=== PATIENT | male | born 1995 | race Caucasian/White ===

== ENCOUNTER 2021-02-21 18:25 | Inpatient (IN) | payer OTHER ==
[~2021-02-21] VITALS: Ht 170.2 cm; Wt 77.1 kg
[2021-02-21 19:02] LABS: BASOPHILS ABSOLUTE AUTO 0.11 K/mm3 (0.00-0.23); BASOPHILS PERCENT AUTO 0 % (0-2); EOSINOPHILS ABSOLUTE AUTO 0.03 K/mm3 (0.00-0.68); EOSINOPHILS PERCENT AUTO 0 % (0-6); Hematocrit 52.4 % (37.0-53.0); Hemoglobin 17.6 g/dL (13.5-17.5); IMMATURE GRAN ABSOLUTE AUTO 0.18 K/mm3 (0.00-0.10); IMMATURE GRAN PERCENT AUTO 1 % (0-1); LYMPHOCYTES ABSOLUTE AUTO 1.25 K/mm3 (0.84-5.20); LYMPHOCYTES PERCENT AUTO 5 % (21-46); MONOCYTES ABSOLUTE AUTO 1.77 K/mm3 (0.16-1.47); MONOCYTES PERCENT AUTO 7 % (4-13); Mean Corpuscular HGB 29.6 pg (26.0-34.0); Mean Corpuscular HGB Conc 33.6 g/dL (31.5-36.5); Mean Corpuscular Volume 88 fL (80-100); Mean Platelet Volume 9.9 fL (9.1-12.4); NEUTROPHILS ABSOLUTE AUTO 22.72 K/mm3 (1.96-9.15); NEUTROPHILS PERCENT AUTO 87 % (41-73); Platelet Count 312 K/mm3 (150-400); RDW Coefficient Variation 12.4 % (11.7-14.2); RDW Standard Deviation 40.5 fL (35.1-46.3); Red Blood Cell Count 5.95 M/mm3 (4.30-5.90); White Blood Cell Count 26.06 K/mm3 (4.00-11.30)
[2021-02-21 19:32] LABS: Alanine Aminotransfer (ALT/SGP 84 U/L (12-78); Albumin, Blood 4.1 g/dL (3.4-5.0); Albumin/Globulin Ratio 1.2 (0.8-1.8); Alk Phos 131 U/L (50-136); Anion Gap 11 mmol/L (6-16); Aspartate Aminotrans (AST/SGOT 51 U/L (12-37); Bilirubin, Total 0.7 mg/dL (0.1-1.0); Blood Urea Nitrogen 13 mg/dL (8-24); Bun/Creatinine Ratio 16.4 (12.0-20.0); CO2, Blood 21 mmol/L (21-32); Calcium, Blood 9.3 mg/dL (8.5-10.1); Chloride, Blood 101 mmol/L (98-108); Globulin, Blood 3.4 g/dL (2.2-4.0); Glomerular Filtration Rate >60 (60-); Glucose, Blood 128 mg/dL (70-99); Potassium, Blood 4.1 mmol/L (3.5-5.5); Sodium, Blood 133 mmol/L (136-145); Total Protein, Blood 7.5 g/dL (6.4-8.2)
[2021-02-21 23:41] LABS: CHOL/HDL RATIO 3.4; Cholesterol 181 mg/dL (50-200); HDL Cholesterol 53 mg/dL (>39); Low Density Lipoprotein Chol 107 mg/dL (0-110); Triglycerides 106 mg/dL (30-140); Very Low Density Lipoprot Chol 21 mg/dL (6-28)
--- NOTE | 2021-02-22 | NUR ---
ADMISSION NOTE: RECEIVED PT FROM ER AAOX4. C/O OF ABD PAIN RATED 9. LUNGS CLEAR. RESP UNLABORED. ABD ROUND AND TENDER TO TOUCH. ORIENTED PT TO SURROUNDINGS. CALL LIGHT WITHIN REACH. PT REPORTS NO RELIEF FROM DILAUDID PO. HOWEVER, THERE IS NO ORDER FOR IV. DR. GOSS CALLED AND MADE AWARE. STATES HE WILL FOLLOW UP WITH RESIDENT AND CALL BACK. AWAITING ORDER.
--- NOTE | 2021-02-22 01:08 | NUR ---
MEDICATED FOR PAIN WITH DILAUDID IV. REPORTS DECREASED PAIN LEVEL RATED 6. OBSERVED RESTING WITH EYES CLOSED. ENCOURAGE REPOSITIONING. WILL CONTINUE TO MONITOR.
--- NOTE | 2021-02-22 03:27 | NUR ---
PT REPORTS FEELING BETTER WITH DILAUDID IV. NO ACUTE CHANGE IN STATUS. IVF INFUSING. DENIES NAUSEA. NO EPISODE OF VOMITING. CALL LIGHT WITHIN REACH. WILL CONTINUE TO MONITOR.
[2021-02-22 05:01] LABS: BASOPHILS ABSOLUTE AUTO 0.03 K/mm3 (0.00-0.23); BASOPHILS PERCENT AUTO 0 % (0-2); EOSINOPHILS ABSOLUTE AUTO 0.01 K/mm3 (0.00-0.68); EOSINOPHILS PERCENT AUTO 0 % (0-6); Hematocrit 51.9 % (37.0-53.0); IMMATURE GRAN PERCENT AUTO 1 % (0-1); LYMPHOCYTES ABSOLUTE AUTO 0.57 K/mm3 (0.84-5.20); LYMPHOCYTES PERCENT AUTO 3 % (21-46); MONOCYTES ABSOLUTE AUTO 1.15 K/mm3 (0.16-1.47); MONOCYTES PERCENT AUTO 7 % (4-13); Mean Corpuscular HGB 29.5 pg (26.0-34.0); Mean Corpuscular HGB Conc 32.8 g/dL (31.5-36.5); Mean Corpuscular Volume 90 fL (80-100); Mean Platelet Volume 10.1 fL (9.1-12.4); NEUTROPHILS ABSOLUTE AUTO 15.93 K/mm3 (1.96-9.15); NEUTROPHILS PERCENT AUTO 89 % (41-73); Platelet Count 263 K/mm3 (150-400); RDW Coefficient Variation 12.7 % (11.7-14.2); RDW Standard Deviation 41.9 fL (35.1-46.3); Red Blood Cell Count 5.76 M/mm3 (4.30-5.90); White Blood Cell Count 17.79 K/mm3 (4.00-11.30)
--- NOTE | 2021-02-22 05:51 | NUR ---
PT REPORTS PAIN OF 6 BUT FEELS MUCH BETTER. RESTING IN BED WITH EYES CLOSED. ENCOURAGE REPOSITIONING. NO CHANGE IN STATUS NOTED.
[2021-02-22 05:55] LABS: Alanine Aminotransfer (ALT/SGP 57 U/L (12-78); Albumin, Blood 3.3 g/dL (3.4-5.0); Albumin/Globulin Ratio 1.3 (0.8-1.8); Alk Phos 106 U/L (50-136); Anion Gap 12 mmol/L (6-16); Aspartate Aminotrans (AST/SGOT 37 U/L (12-37); Bilirubin, Total 0.7 mg/dL (0.1-1.0); Blood Urea Nitrogen 13 mg/dL (8-24); Bun/Creatinine Ratio 18.6 (12.0-20.0); CO2, Blood 19 mmol/L (21-32); Calcium, Blood 8.1 mg/dL (8.5-10.1); Chloride, Blood 109 mmol/L (98-108); Globulin, Blood 2.6 g/dL (2.2-4.0); Glomerular Filtration Rate >60 (60-); Glucose, Blood 137 mg/dL (70-99); Potassium, Blood 3.9 mmol/L (3.5-5.5); Sodium, Blood 140 mmol/L (136-145); Total Protein, Blood 5.9 g/dL (6.4-8.2)
--- NOTE | 2021-02-22 18:37 | NUR ---
PT C/O ABDOMINAL PAIN,MEDICATED PER EMAR.PT C/O N/V,MEDICATED WITH ZOFRAN,PT DENIES SOB.PT INDEP.IN THE ROOM.PT ABD IS TENDER.PT IN BED,CALL LIGHT IN REACH WILL CONTINUE TO MONITOR.
--- NOTE | 2021-02-23 05:25 | NUR ---
AOX4. C/O OF ABD PAIN, INTERMITTENT BACK PAIN AND NAUSEA. PT IS FEARFUL OF TAKING DEEP BREATHS DUE TO PAIN. MEDICATED WITH PRN MEDS.NO OTHER ISSUES NOTED. CALM AND COOPERATIVE WITH CARE. AOX4.BED IN LOW POSITION, CALL LIGHT IN REACH
[2021-02-23 05:55] LABS: Hematocrit 50.8 % (37.0-53.0); Hemoglobin 16.8 g/dL (13.5-17.5); Mean Corpuscular HGB 29.7 pg (26.0-34.0); Mean Corpuscular HGB Conc 33.1 g/dL (31.5-36.5); Mean Corpuscular Volume 90 fL (80-100); Mean Platelet Volume 10.7 fL (9.1-12.4); Platelet Count 195 K/mm3 (150-400); RDW Coefficient Variation 12.9 % (11.7-14.2); RDW Standard Deviation 42.4 fL (35.1-46.3); Red Blood Cell Count 5.65 M/mm3 (4.30-5.90); White Blood Cell Count 22.79 K/mm3 (4.00-11.30)
[2021-02-23 06:15] LABS: Albumin, Blood 2.8 g/dL (3.4-5.0); Anion Gap 9 mmol/L (6-16); Blood Urea Nitrogen 17 mg/dL (8-24); Bun/Creatinine Ratio 21.5 (12.0-20.0); CO2, Blood 22 mmol/L (21-32); Calcium, Blood 8.1 mg/dL (8.5-10.1); Chloride, Blood 103 mmol/L (98-108); Creatinine, Blood 0.79 mg/dL (0.60-1.20); Glomerular Filtration Rate >60 (60-); Glucose, Blood 146 mg/dL (70-99); Phosphorus, Blood 1.9 mg/dL (2.5-4.9); Potassium, Blood 4.4 mmol/L (3.5-5.5); Sodium, Blood 134 mmol/L (136-145)
[2021-02-23 06:34] LABS: BAND PERCENT MAN 27 % (0-8); BASOPHILS PERCENT MAN 0 % (0-2); EOSINOPHILS PERCENT MAN 0 % (0-6); LYMPHOCYTES ABSOLUTE MAN 0.45 K/mm3 (0.84-5.20); LYMPHOCYTES PERCENT MAN 2 % (21-46); MONOCYTES ABSOLUTE MAN 0.68 K/mm3 (0.16-1.47); MONOCYTES PERCENT MAN 3 % (4-13); MYELOCYTE ABSOLUTE MAN 0.22 K/mm3 (0.00-0.00); MYELOCYTE PERCENT MAN 1 % (0-0); NEUTROPHILS ABSOLUTE MAN 21.42 K/mm3 (1.96-9.15); SEG NEUTROPHILS PERCENT MAN 67 % (41-73); TOTAL CELLS COUNTED 100
--- NOTE | 2021-02-23 19:04 | NUR ---
PT C/O PAIN MEDICATED PER EMAR.PT ALERT AND ORIENTED,DENIES SOB.PT HAD X-RAY DONE THIS AFTERNOON.PT IN BED,CALL LIGTH IN REACH WILL CONTINUE TO MONITOR.
--- NOTE | 2021-02-24 05:00 | NUR ---
AOX4. CALM AND COOPERATIVE WITH CARE.FREQUENT C/O OF ABD AND BACK PAIN NEW ORDER OBTAINED NORCO Q4 PRN. SINUS TACH ON TELE WITH HR UP TO 140'S AT TIMES. PT PROVIDED IS TO ASSIST WITH BREATHING. HE WAS AFRAID TO TAKE DEEP BREATHS DUE TO PAIN.NO C/O OF N/V THIS SHIFT. IV FLUIDS INFUSING. NO OTHER ISSUES NOTED. CALL LIGHT IN REACH. BED IN LOW POSITION
[2021-02-24 05:20] LABS: Hematocrit 41.2 % (37.0-53.0); Hemoglobin 13.7 g/dL (13.5-17.5); Mean Corpuscular HGB 29.6 pg (26.0-34.0); Mean Corpuscular HGB Conc 33.3 g/dL (31.5-36.5); Mean Corpuscular Volume 89 fL (80-100); Mean Platelet Volume 10.8 fL (9.1-12.4); Platelet Count 142 K/mm3 (150-400); RDW Coefficient Variation 12.5 % (11.7-14.2); RDW Standard Deviation 41.2 fL (35.1-46.3); Red Blood Cell Count 4.63 M/mm3 (4.30-5.90); White Blood Cell Count 16.16 K/mm3 (4.00-11.30)
[2021-02-24 05:59] LABS: Albumin, Blood 2.3 g/dL (3.4-5.0); Anion Gap 9 mmol/L (6-16); Blood Urea Nitrogen 12 mg/dL (8-24); Bun/Creatinine Ratio 18.5 (12.0-20.0); CO2, Blood 24 mmol/L (21-32); Calcium, Blood 7.8 mg/dL (8.5-10.1); Chloride, Blood 101 mmol/L (98-108); Creatinine, Blood 0.65 mg/dL (0.60-1.20); Glomerular Filtration Rate >60 (60-); Glucose, Blood 98 mg/dL (70-99); Phosphorus, Blood 1.2 mg/dL (2.5-4.9); Potassium, Blood 4.3 mmol/L (3.5-5.5); Sodium, Blood 134 mmol/L (136-145)
[2021-02-24 06:51] LABS: BAND PERCENT MAN 17 % (0-8); BASOPHILS PERCENT MAN 0 % (0-2); EOSINOPHILS PERCENT MAN 0 % (0-6); LYMPHOCYTES ABSOLUTE MAN 1.93 K/mm3 (0.84-5.20); LYMPHOCYTES PERCENT MAN 12 % (21-46); MONOCYTES ABSOLUTE MAN 1.93 K/mm3 (0.16-1.47); MONOCYTES PERCENT MAN 12 % (4-13); NEUTROPHILS ABSOLUTE MAN 12.28 K/mm3 (1.96-9.15); SEG NEUTROPHILS PERCENT MAN 59 % (41-73); TOTAL CELLS COUNTED 100
--- NOTE | 2021-02-24 18:27 | NUR ---
PT ALERT ORIENTED X 4.PT C/O ABD PAIN MEDICATED PER EMAR,DENIES N/V,SOB.PT HAD CT ABD.PT INDEP.IN THE ROOM,PT STILL ON CLEAR LIQUID.PT IN BED,CALL LIGHT IN REACH WILL CONTINUE TO MONITOR.
--- NOTE | 2021-02-25 04:29 | NUR ---
SUMMARY PT CONTINUES TO HAVE DISCOMFORT. PT RESPONDS WELL TO PAIN MANAGEMENT. PT REPORTS ABD FEELS LESS BLOATED. PT REPORTS GROIN IS STILL SWOLLEN. PT DID SLEEP SOME DURING THE SHIFT. PT CURRENTLY SLEEPING AND IN NO DISTRESS. CALL LIGHT IN REACH.
[2021-02-25 05:10] LABS: Hematocrit 37.4 % (37.0-53.0); Hemoglobin 12.5 g/dL (13.5-17.5); Mean Corpuscular HGB 29.9 pg (26.0-34.0); Mean Corpuscular HGB Conc 33.4 g/dL (31.5-36.5); Mean Corpuscular Volume 90 fL (80-100); Mean Platelet Volume 10.4 fL (9.1-12.4); Platelet Count 184 K/mm3 (150-400); RDW Coefficient Variation 12.7 % (11.7-14.2); RDW Standard Deviation 41.7 fL (35.1-46.3); Red Blood Cell Count 4.18 M/mm3 (4.30-5.90)
[2021-02-25 06:00] LABS: Alanine Aminotransfer (ALT/SGP 38 U/L (12-78); Albumin, Blood 2.3 g/dL (3.4-5.0); Albumin/Globulin Ratio 0.9 (0.8-1.8); Alk Phos 92 U/L (50-136); Anion Gap 8 mmol/L (6-16); Aspartate Aminotrans (AST/SGOT 40 U/L (12-37); Bilirubin, Direct 0.5 mg/dL (0.0-0.3); Bilirubin, Indirect 0.5 mg/dL (0.1-0.7); Blood Urea Nitrogen 12 mg/dL (8-24); Bun/Creatinine Ratio 18.7 (12.0-20.0); CO2, Blood 28 mmol/L (21-32); Calcium, Blood 8.1 mg/dL (8.5-10.1); Chloride, Blood 100 mmol/L (98-108); Creatinine, Blood 0.64 mg/dL (0.60-1.20); Globulin, Blood 2.7 g/dL (2.2-4.0); Glomerular Filtration Rate >60 (60-); Glucose, Blood 84 mg/dL (70-99); Phosphorus, Blood 1.7 mg/dL (2.5-4.9); Potassium, Blood 3.4 mmol/L (3.5-5.5); Sodium, Blood 136 mmol/L (136-145)
[2021-02-26 04:34] LABS: Hematocrit 38.4 % (37.0-53.0); Hemoglobin 12.9 g/dL (13.5-17.5); Mean Corpuscular HGB 29.5 pg (26.0-34.0); Mean Corpuscular HGB Conc 33.6 g/dL (31.5-36.5); Mean Corpuscular Volume 88 fL (80-100); Mean Platelet Volume 9.7 fL (9.1-12.4); Platelet Count 240 K/mm3 (150-400); RDW Coefficient Variation 12.8 % (11.7-14.2); RDW Standard Deviation 41.4 fL (35.1-46.3); Red Blood Cell Count 4.38 M/mm3 (4.30-5.90); White Blood Cell Count 14.57 K/mm3 (4.00-11.30)
[2021-02-26 04:50] LABS: Albumin, Blood 2.4 g/dL (3.4-5.0); Anion Gap 7 mmol/L (6-16); Blood Urea Nitrogen 10 mg/dL (8-24); CO2, Blood 29 mmol/L (21-32); Calcium, Blood 8.2 mg/dL (8.5-10.1); Chloride, Blood 102 mmol/L (98-108); Creatinine, Blood 0.67 mg/dL (0.60-1.20); Glomerular Filtration Rate >60 (60-); Glucose, Blood 91 mg/dL (70-99); Phosphorus, Blood 2.7 mg/dL (2.5-4.9); Potassium, Blood 3.3 mmol/L (3.5-5.5); Sodium, Blood 138 mmol/L (136-145)
--- NOTE | 2021-02-26 16:58 | NUR ---
SHIFT SUMMARY PT IS AAOX4, ABLE TO MAKE NEEDS KNOWN. PLEASANT AND COOPERATIVE TO CARE. MEDICATED FOR PAIN PER EMAR. NO C/O CP, SOB, OR N&V. PT TOLERATED DIET THIS SHIFT. PT CONTINUES ON IV ABX ORDERED, NO ASE NOTED. PT IS INDEPENDENT IN THE ROOM AND CALLS APPROPRIATELY FOR ASSISTANCE. BED AT LOWEST POSITION. CALL LIGHT WITHIN REACH.
--- NOTE | 2021-02-27 05:42 | NUR ---
PRIMING MIXTURE CARRIER SUMMARY NO ACUTE CHANGES WITH PATIENT. PATIENT SAT IN CHAIR ALL NIGHT DUE TO BACK PAIN AND WAS MEDICATED WITH HYDROMOPHONE AND OXYCONE WHICH ARE PRN MES PER EMAR. PATIENT TOLERANTED DRINKING WATER BUT STILL COMPAINED OF HIS ABDOMINAL DISCOMFORT
[2021-02-27 09:26] LABS: Hemoglobin 12.9 g/dL (13.5-17.5); Mean Corpuscular HGB 29.6 pg (26.0-34.0); Mean Corpuscular HGB Conc 33.1 g/dL (31.5-36.5); Mean Corpuscular Volume 89 fL (80-100); Mean Platelet Volume 9.9 fL (9.1-12.4); Platelet Count 354 K/mm3 (150-400); RDW Coefficient Variation 12.8 % (11.7-14.2); RDW Standard Deviation 42.4 fL (35.1-46.3); Red Blood Cell Count 4.36 M/mm3 (4.30-5.90); White Blood Cell Count 15.02 K/mm3 (4.00-11.30)
[2021-02-27 09:35] LABS: Alanine Aminotransfer (ALT/SGP 41 U/L (12-78); Albumin, Blood 2.5 g/dL (3.4-5.0); Albumin/Globulin Ratio 0.8 (0.8-1.8); Alk Phos 144 U/L (50-136); Anion Gap 8 mmol/L (6-16); Aspartate Aminotrans (AST/SGOT 38 U/L (12-37); Bilirubin, Total 0.9 mg/dL (0.1-1.0); Blood Urea Nitrogen 8 mg/dL (8-24); Bun/Creatinine Ratio 13.5 (12.0-20.0); CO2, Blood 25 mmol/L (21-32); Calcium, Blood 8.6 mg/dL (8.5-10.1); Chloride, Blood 105 mmol/L (98-108); Creatinine, Blood 0.59 mg/dL (0.60-1.20); Globulin, Blood 3.2 g/dL (2.2-4.0); Glomerular Filtration Rate >60 (60-); Glucose, Blood 128 mg/dL (70-99); Potassium, Blood 3.5 mmol/L (3.5-5.5); Sodium, Blood 138 mmol/L (136-145); Total Protein, Blood 5.7 g/dL (6.4-8.2)
--- NOTE | 2021-02-27 17:34 | NUR ---
SHIFT SUMMARY PT INDEPENDENT IN ROOM. HAS WALKED IN HALLWAY TWICE TODAY AND ENCOURAGED TO WALK AFTER EACH MEAL. HAS REPORTED CONTINUING TO FEEL VERY BLOATED TODAY DESPITE HAVING BMS. VOIDING LARGE ABOUNTS. IV LASIX GIVEN THIS AFTERNOON AND NOW PT REPORTS STARTING TO FEEL LESS BLOATED AND PAIN BETTER. S.O. AT BEDSIDE. TOLERATING CLEAR LIQUIDS BUT HAS BEEN SAYING HE FEELS SO FULL AND BLOATED THAT ITS HARD TO EAT VERY MUCH.
--- NOTE | 2021-02-28 05:00 | NUR ---
ENVIRONMENTAL FIELD TEAM MEMBER SUMMARY PT AAOX4 AND INDEPENDENT. PT TOLERATING FULL LIQUID DIET WELL. PT PAIN BETTER CONTROLLED TONIGHT, ONLY MEDICATED WITH NORCO X2. PT STATES LASIX HE RECIEVED ON DAY SHIFT REALLY HELPED WITH HIS BLOATING AND HAS BEEN MORE COMFORTABLE EVER SINCE. PT HOPEFULL TO GO HOME LATER TODAY.
[2021-02-28 05:37] LABS: Hematocrit 39.5 % (37.0-53.0); Hemoglobin 12.7 g/dL (13.5-17.5); Mean Corpuscular HGB 28.8 pg (26.0-34.0); Mean Corpuscular HGB Conc 32.2 g/dL (31.5-36.5); Mean Corpuscular Volume 90 fL (80-100); Mean Platelet Volume 9.8 fL (9.1-12.4); Platelet Count 431 K/mm3 (150-400); RDW Coefficient Variation 12.8 % (11.7-14.2); RDW Standard Deviation 42.4 fL (35.1-46.3); Red Blood Cell Count 4.41 M/mm3 (4.30-5.90); White Blood Cell Count 12.72 K/mm3 (4.00-11.30)
[2021-02-28 06:23] LABS: Albumin, Blood 2.6 g/dL (3.4-5.0); Anion Gap 10 mmol/L (6-16); Blood Urea Nitrogen 9 mg/dL (8-24); Bun/Creatinine Ratio 14.5 (12.0-20.0); CO2, Blood 25 mmol/L (21-32); Calcium, Blood 8.9 mg/dL (8.5-10.1); Chloride, Blood 103 mmol/L (98-108); Creatinine, Blood 0.62 mg/dL (0.60-1.20); Glomerular Filtration Rate >60 (60-); Glucose, Blood 96 mg/dL (70-99); Phosphorus, Blood 3.2 mg/dL (2.5-4.9); Potassium, Blood 4.1 mmol/L (3.5-5.5); Sodium, Blood 138 mmol/L (136-145)
--- NOTE | 2021-02-28 07:30 | NUR ---
ASSUMED CARE: PT RESTING QUIETLY IN CHAIR AT THIS TIME. NO ACUTE NEEDS OR CONCERNS.
--- NOTE | 2021-02-28 16:27 | NUR ---
Provided pancreatitis diet education. Discussed dietary ways to minimize symptoms/pain when diet advances. Recommended following low-fat diet initially. Pt was confident in ability to do this an verbalized understanding of foods with higher fat content. Encouraged several small meals throughout the day. Pt inquired if he should limit starch - recommended pt focus on getting enough protein, limiting fat, and not worrying too much about CHO intake. Discussed monitoring wt to check if pt is eating enough kcals when limiting fat, especially if intake may still be low d/t abdominal pain. Moderate compliance expected.
--- NOTE | 2021-02-28 18:38 | NUR ---
SHIFT SUMMARY: WORKING ON PAIN MANAGEMENT FOR PT T/O DAY WELL EDUCATING ON OTHER METHODS FOR PAIN MANAGEMENT THAT ARE NONPHARMACEUTICAL. PLAN IS FOR POTENTIAL DISCHARGE TOMORROW. ICE PACKS AND PAIN MEDS PROVIDED THIS EVENING. NO ACUTE NEEDS OR CONCERNS AT THIS TIME.
--- NOTE | 2021-03-01 05:01 | NUR ---
BED MACHINE OPERATOR SUMMARY ADMITTED FOR PANCREATITIS. PT IS FULL CODE. PLAN FOR D/C AFTER PAIN IS CONTROLLED AND PT CAN TOLERATE PO INTAKE. PT REPORTS IMPROVEMENT IN PAIN DUE TO DECREASED AMBULATION. PT MEDICATED X3 FOR PAIN THIS SHIFT. NO OTHER CONCERNS THIS SHIFT.
[2021-03-01 05:33] LABS: BASOPHILS PERCENT AUTO 1 % (0-2); EOSINOPHILS ABSOLUTE AUTO 0.35 K/mm3 (0.00-0.68); EOSINOPHILS PERCENT AUTO 2 % (0-6); Hematocrit 40.8 % (37.0-53.0); Hemoglobin 12.8 g/dL (13.5-17.5); IMMATURE GRAN ABSOLUTE AUTO 0.46 K/mm3 (0.00-0.10); IMMATURE GRAN PERCENT AUTO 3 % (0-1); LYMPHOCYTES ABSOLUTE AUTO 1.96 K/mm3 (0.84-5.20); LYMPHOCYTES PERCENT AUTO 13 % (21-46); MONOCYTES PERCENT AUTO 14 % (4-13); Mean Corpuscular HGB 28.6 pg (26.0-34.0); Mean Corpuscular HGB Conc 31.4 g/dL (31.5-36.5); Mean Corpuscular Volume 91 fL (80-100); Mean Platelet Volume 9.6 fL (9.1-12.4); NEUTROPHILS ABSOLUTE AUTO 10.32 K/mm3 (1.96-9.15); NEUTROPHILS PERCENT AUTO 67 % (41-73); Platelet Count 521 K/mm3 (150-400); RDW Standard Deviation 43.2 fL (35.1-46.3); Red Blood Cell Count 4.47 M/mm3 (4.30-5.90); White Blood Cell Count 15.39 K/mm3 (4.00-11.30)
[2021-03-01 06:20] LABS: Alanine Aminotransfer (ALT/SGP 58 U/L (12-78); Albumin, Blood 2.5 g/dL (3.4-5.0); Albumin/Globulin Ratio 0.7 (0.8-1.8); Alk Phos 179 U/L (50-136); Anion Gap 7 mmol/L (6-16); Aspartate Aminotrans (AST/SGOT 44 U/L (12-37); Bilirubin, Total 0.8 mg/dL (0.1-1.0); Blood Urea Nitrogen 8 mg/dL (8-24); Bun/Creatinine Ratio 11.6 (12.0-20.0); CO2, Blood 28 mmol/L (21-32); Chloride, Blood 103 mmol/L (98-108); Creatinine, Blood 0.69 mg/dL (0.60-1.20); Globulin, Blood 3.4 g/dL (2.2-4.0); Glomerular Filtration Rate >60 (60-); Glucose, Blood 90 mg/dL (70-99); Magnesium, Blood 2.5 mg/dL (1.6-2.4); Phosphorus, Blood 4.1 mg/dL (2.5-4.9); Potassium, Blood 4.5 mmol/L (3.5-5.5); Sodium, Blood 138 mmol/L (136-145); Total Protein, Blood 5.9 g/dL (6.4-8.2)
--- NOTE | 2021-03-01 07:07 | NUR ---
ASSUMED CARE: PT RESTING QUIETLY AT THIS TIME. NO ACUTE NEEDS OR CONCERNS.
--- NOTE | 2021-03-01 09:36 | NUR ---
PT STATES VOMITED AFTER BREAKFAST. RN UNSURE OF COLOR OR VOLUME. PT DENIES BEING NAUSEATED FURTHER AND DECLINED NAUSEA MEDICATION
--- NOTE | 2021-03-01 11:46 | NUR ---
TOLD THIS RN AND PT THAT IF PT CAN TOLERATE LUNCH WITHOUT SIGNIFICANT PAIN OR NAUSEA THEN HE COULD BE DISCHARGED HOME THIS AFTERNOON. PT EATING CRACKERS AT THIS TIME TO SEE HOW WELL HE TOLERATES.
[2021-03-01] MEDS ORDERED: Norco 10-325 T1 EACH PO (15:22)
[2021-03-01] MEDS ORDERED: MELATONIN5 M1 PO (15:22)
[2021-03-01] MEDS ORDERED: ONDA4ODT MM (15:23)
[2021-03-01] MEDS ORDERED: PANT40 PO (15:23)
[2021-03-01] MEDS ORDERED: AMOCLA875 PO (15:23)
[2021-03-01] MEDS ORDERED: MIRALAX17 GM PO (15:23)
[2021-03-01] MEDS ORDERED: LACT PO (15:24)
[2021-03-01] MEDS ORDERED: SIME80CH PO (15:24)
[2021-03-01] MEDS ORDERED: Acetaminophen650 M1 PO (15:25)
--- NOTE | 2021-03-01 15:48 | NUR ---
PT AND SIGNIFICANT OTHER GIVEN INSTRUCTIONS REGARDING FOLLOW UP APPOINTMENTS AND MEDICATIONS. IV DC'D WNL. PT DENIED FURTHER QUESTIONS OR CONCERNS. AMBULATORY UPON DISCHARGE
== END 2021-03-01 15:46 | disposition home or self-care (01) | DRG 439 ==
LOC: ER 18:25 → MEDS 21:20
PROVIDERS: Family Medicine; Internal Medicine; Physician Assistant; Student in an Organized Health Care Education/Training Program; ADMIT Internal Medicine
DX: K85.22 Alcohol induced acute pancreatitis with infected necrosis (principal); E87.1 Hypo-osmolality and hyponatremia; K86.3 Pseudocyst of pancreas; F41.9 Anxiety disorder, unspecified; K29.80 Duodenitis without bleeding; F10.20 Alcohol dependence, uncomplicated; Z79.899 Other long term (current) drug therapy
CPT/HCPCS: 36415; 74018; 74177; 76705; 80053; 80061; 80069; 82248; 83605; 83690; 83735; 83880; 84100; 85025; 85027; 86140; 87040; 96365; 96367; 96375; 96376; 97110; 97116; 97161; 97165; 97530; 99285-25; A9270; C9113; J1170; J1650; J1885; J1940; J2185; J2405; J2543; J3480; J7030; J7060; J7120; Q9967

== ENCOUNTER → 2021-02-21 | Outpatient (CLI) | payer OTHER ==
[~2021-02-21] MED LIST: ALPR1 PO; CETI10 PO; DIPH50 PO; MUPI2TC TOP; NAPR500 PO; PRED5 PO
[2021-02-21 16:36] LABS: Hematocrit 50.6 % (37.0-53.0); Hemoglobin 17.2 g/dL (13.5-17.5); Mean Corpuscular HGB 29.7 pg (26.0-34.0); Mean Corpuscular Volume 87 fL (80-100); Mean Platelet Volume 9.9 fL (9.1-12.4); Platelet Count 332 K/mm3 (150-400); RDW Coefficient Variation 12.7 % (11.7-14.2); RDW Standard Deviation 40.1 fL (35.1-46.3); White Blood Cell Count 25.47 K/mm3 (4.00-11.30)
[2021-02-21 16:55] LABS: Alanine Aminotransfer (ALT/SGP 93 U/L (12-78); Albumin, Blood 4.7 g/dL (3.4-5.0); Albumin/Globulin Ratio 1.6 (0.8-1.8); Alk Phos 143 U/L (40-126); Anion Gap 13 mmol/L (6-16); Aspartate Aminotrans (AST/SGOT 45 U/L (12-37); Bilirubin, Total 0.6 mg/dL (0.1-1.0); Blood Urea Nitrogen 14 mg/dL (8-24); Bun/Creatinine Ratio 15.1 (12.0-20.0); CO2, Blood 25 mmol/L (21-32); Calcium, Blood 9.9 mg/dL (8.5-10.1); Chloride, Blood 101 mmol/L (98-108); Creatinine, Blood 0.93 mg/dL (0.60-1.20); Glomerular Filtration Rate >60 (60-); Glucose, Blood 138 mg/dL (70-99); Potassium, Blood 3.8 mmol/L (3.5-5.5); Sodium, Blood 139 mmol/L (136-145); Total Protein, Blood 7.7 g/dL (6.4-8.2)
[2021-02-21 17:42] LABS: BAND PERCENT MAN 10 % (0-8); BASOPHILS PERCENT MAN 0 % (0-2); EOSINOPHILS ABSOLUTE MAN 0.25 K/mm3 (0.00-0.68); EOSINOPHILS PERCENT MAN 1 % (0-6); LYMPHOCYTES ABSOLUTE MAN 2.03 K/mm3 (0.84-5.20); LYMPHOCYTES PERCENT MAN 8 % (21-46); MONOCYTES ABSOLUTE MAN 1.52 K/mm3 (0.16-1.47); MONOCYTES PERCENT MAN 6 % (4-13); NEUTROPHILS ABSOLUTE MAN 21.64 K/mm3 (1.96-9.15); SEG NEUTROPHILS PERCENT MAN 75 % (41-73); TOTAL CELLS COUNTED 100
== END | disposition home or self-care (01) ==
LOC: LAB SHORT 16:31
PROVIDERS: Physician Assistant
DX: R10.31 Right lower quadrant pain (principal)
CPT/HCPCS: 80053; 85025

== ENCOUNTER 2021-03-08 17:45 | Inpatient (IN) | payer OTHER ==
[~2021-03-08] VITALS: Ht 170.2 cm; Wt 71.0 kg
[~2021-03-08 17:45] MED LIST changes: -CREON DR 3,0001 EACH PO; -PERCOCET 10-321 EAC1 PO; -VISBIOME 112.51 EACH PO
[2021-03-08 18:29] LABS: BASOPHILS ABSOLUTE AUTO 0.09 K/mm3 (0.00-0.23); BASOPHILS PERCENT AUTO 1 % (0-2); EOSINOPHILS PERCENT AUTO 2 % (0-6); Hematocrit 43.6 % (37.0-53.0); Hemoglobin 14.1 g/dL (13.5-17.5); IMMATURE GRAN ABSOLUTE AUTO 0.12 K/mm3 (0.00-0.10); IMMATURE GRAN PERCENT AUTO 1 % (0-1); LYMPHOCYTES ABSOLUTE AUTO 1.94 K/mm3 (0.84-5.20); LYMPHOCYTES PERCENT AUTO 14 % (21-46); MONOCYTES PERCENT AUTO 5 % (4-13); Mean Corpuscular HGB 29.3 pg (26.0-34.0); Mean Corpuscular HGB Conc 32.3 g/dL (31.5-36.5); Mean Corpuscular Volume 91 fL (80-100); Mean Platelet Volume 9.4 fL (9.1-12.4); NEUTROPHILS ABSOLUTE AUTO 11.04 K/mm3 (1.96-9.15); NEUTROPHILS PERCENT AUTO 78 % (41-73); RDW Coefficient Variation 12.7 % (11.7-14.2); RDW Standard Deviation 41.9 fL (35.1-46.3); Red Blood Cell Count 4.82 M/mm3 (4.30-5.90); White Blood Cell Count 14.19 K/mm3 (4.00-11.30)
[2021-03-08 18:37] LABS: Platelet Count 1060 K/mm3 (150-400)
[2021-03-08 18:48] LABS: Alanine Aminotransfer (ALT/SGP 51 U/L (12-78); Albumin/Globulin Ratio 0.9 (0.8-1.8); Alk Phos 244 U/L (50-136); Anion Gap 8 mmol/L (6-16); Aspartate Aminotrans (AST/SGOT 34 U/L (12-37); Bilirubin, Total 0.4 mg/dL (0.1-1.0); Blood Urea Nitrogen 11 mg/dL (8-24); Bun/Creatinine Ratio 12.6 (12.0-20.0); CO2, Blood 27 mmol/L (21-32); Calcium, Blood 10.4 mg/dL (8.5-10.1); Chloride, Blood 101 mmol/L (98-108); Creatinine, Blood 0.88 mg/dL (0.60-1.20); Globulin, Blood 4.5 g/dL (2.2-4.0); Glomerular Filtration Rate >60 (60-); Glucose, Blood 117 mg/dL (70-99); Lactate Dehydrogenase (Ld),Bld 300 U/L (100-240); Magnesium, Blood 2.4 mg/dL (1.6-2.4); Potassium, Blood 4.4 mmol/L (3.5-5.5); Sodium, Blood 136 mmol/L (136-145); Total Protein, Blood 8.5 g/dL (6.4-8.2)
[2021-03-08 23:12] LABS: Influenza A, PCR NEGATIVE (NEGATIVE); Influenza B, PCR NEGATIVE (NEGATIVE); Resp Syncytial Virus, PCR NEGATIVE (NEGATIVE); SARS-Cov-2 (COVID-19) PCR, MMC NEGATIVE (NEGATIVE)
--- NOTE | 2021-03-09 02:44 | NUR ---
PATIENT ADMITTED 0128 VIA STRETCHER ED, UNABLE TO STAND STRAIGHT UP WEAK WITH WALKING CRYING OUT IN PAIN, PREFERS TO BE IN A TRIPOD POSITION OR POSITION, PAIN IS LOCATED IN UPPER QUADRANT OF ABDOMEN RADIATING ALL OVER THROUGH BILATERAL FLANKS. ALERT AND ORIENTATED, FLAT AFFECT NO EYE CONTACT, EDUCATION GIVEN ON ORIENTATION OF ROOM AND SAFETY, CALL LIGHT WITHIN REACH, BED ALARM ON. ALL CONSENTS ARE SIGNED, NORMAL SALINE RUNNING IN THE RFA IV, FENTANYL 50MCG IVP GIVEN PATIENT REPORTED BETTER PAIN RELIEF THAN WHAT HE RECEIVED IN THE ED. DISCUSSED POSSIBLE PHOTOGRAPHIC PROCESS SCREEN MAKER FOR PATIENT WITH MD, WILL CONTINUE TO MONITOR AT THIS TIME.
[2021-03-09 04:14] LABS: BASOPHILS ABSOLUTE AUTO 0.09 K/mm3 (0.00-0.23); BASOPHILS PERCENT AUTO 1 % (0-2); EOSINOPHILS ABSOLUTE AUTO 0.14 K/mm3 (0.00-0.68); EOSINOPHILS PERCENT AUTO 1 % (0-6); Hematocrit 38.6 % (37.0-53.0); Hemoglobin 12.3 g/dL (13.5-17.5); IMMATURE GRAN PERCENT AUTO 1 % (0-1); LYMPHOCYTES ABSOLUTE AUTO 0.75 K/mm3 (0.84-5.20); LYMPHOCYTES PERCENT AUTO 5 % (21-46); MONOCYTES ABSOLUTE AUTO 0.88 K/mm3 (0.16-1.47); MONOCYTES PERCENT AUTO 6 % (4-13); Mean Corpuscular HGB 28.6 pg (26.0-34.0); Mean Corpuscular HGB Conc 31.9 g/dL (31.5-36.5); Mean Corpuscular Volume 90 fL (80-100); Mean Platelet Volume 9.6 fL (9.1-12.4); NEUTROPHILS ABSOLUTE AUTO 12.17 K/mm3 (1.96-9.15); NEUTROPHILS PERCENT AUTO 86 % (41-73); Platelet Count 845 K/mm3 (150-400); RDW Coefficient Variation 12.7 % (11.7-14.2); RDW Standard Deviation 41.5 fL (35.1-46.3); White Blood Cell Count 14.13 K/mm3 (4.00-11.30)
[2021-03-09 04:24] LABS: Alanine Aminotransfer (ALT/SGP 40 U/L (12-78); Albumin, Blood 3.1 g/dL (3.4-5.0); Albumin/Globulin Ratio 0.7 (0.8-1.8); Alk Phos 186 U/L (50-136); Anion Gap 10 mmol/L (6-16); Aspartate Aminotrans (AST/SGOT 19 U/L (12-37); Bilirubin, Total 0.4 mg/dL (0.1-1.0); Blood Urea Nitrogen 9 mg/dL (8-24); Bun/Creatinine Ratio 13.3 (12.0-20.0); CO2, Blood 24 mmol/L (21-32); Calcium, Blood 9.5 mg/dL (8.5-10.1); Chloride, Blood 105 mmol/L (98-108); Creatinine, Blood 0.68 mg/dL (0.60-1.20); Globulin, Blood 4.2 g/dL (2.2-4.0); Glomerular Filtration Rate >60 (60-); Glucose, Blood 94 mg/dL (70-99); Sodium, Blood 139 mmol/L (136-145); Total Protein, Blood 7.3 g/dL (6.4-8.2)
--- NOTE | 2021-03-09 04:28 | NUR ---
FAULTY NURSERYPERSON CARTRIAGE, WAISTED WITH PITER LOAIZA RN AND PHARMACY WAS CALLED. INFORMATION INPUTTED IN THE EMAR THAT DOESN'T REQUIRE DUAL SIGNATURE.
--- NOTE | 2021-03-09 18:34 | NUR ---
PATIENT CURRENTLY SITTING ON SIDE OF BED WITH COMPLAINTS OF ABD PAIN AND NAUSEA. PATIENT WAS MEDICATED WITH ZOFRAN AND HAS FENTANYL DATA ANALYSIS ASSISTANT. NO SIGNS OR SYMPTOMS ACUTE DISTRESS NOTED. CALL LIGHT AND WATER IN EASY REACH. ABLE TO MAKE NEEDS AND WANTS KNOWN. WILL MONITOR.
[2021-03-10 04:16] LABS: BASOPHILS ABSOLUTE AUTO 0.09 K/mm3 (0.00-0.23); BASOPHILS PERCENT AUTO 1 % (0-2); EOSINOPHILS ABSOLUTE AUTO 0.34 K/mm3 (0.00-0.68); EOSINOPHILS PERCENT AUTO 3 % (0-6); Hematocrit 37.4 % (37.0-53.0); IMMATURE GRAN ABSOLUTE AUTO 0.08 K/mm3 (0.00-0.10); IMMATURE GRAN PERCENT AUTO 1 % (0-1); LYMPHOCYTES ABSOLUTE AUTO 1.01 K/mm3 (0.84-5.20); LYMPHOCYTES PERCENT AUTO 9 % (21-46); MONOCYTES ABSOLUTE AUTO 1.09 K/mm3 (0.16-1.47); MONOCYTES PERCENT AUTO 10 % (4-13); Mean Corpuscular HGB 28.8 pg (26.0-34.0); Mean Corpuscular HGB Conc 32.1 g/dL (31.5-36.5); Mean Corpuscular Volume 90 fL (80-100); Mean Platelet Volume 9.7 fL (9.1-12.4); NEUTROPHILS ABSOLUTE AUTO 8.75 K/mm3 (1.96-9.15); NEUTROPHILS PERCENT AUTO 77 % (41-73); Platelet Count 739 K/mm3 (150-400); RDW Coefficient Variation 12.9 % (11.7-14.2); RDW Standard Deviation 42.4 fL (35.1-46.3); Red Blood Cell Count 4.17 M/mm3 (4.30-5.90); White Blood Cell Count 11.36 K/mm3 (4.00-11.30)
[2021-03-10 04:52] LABS: Alanine Aminotransfer (ALT/SGP 35 U/L (12-78); Albumin, Blood 3.1 g/dL (3.4-5.0); Albumin/Globulin Ratio 0.8 (0.8-1.8); Alk Phos 187 U/L (50-136); Anion Gap 11 mmol/L (6-16); Aspartate Aminotrans (AST/SGOT 20 U/L (12-37); Bilirubin, Total 0.6 mg/dL (0.1-1.0); Blood Urea Nitrogen 7 mg/dL (8-24); Bun/Creatinine Ratio 10.9 (12.0-20.0); CO2, Blood 25 mmol/L (21-32); Calcium, Blood 9.8 mg/dL (8.5-10.1); Chloride, Blood 102 mmol/L (98-108); Creatinine, Blood 0.64 mg/dL (0.60-1.20); Globulin, Blood 3.7 g/dL (2.2-4.0); Glomerular Filtration Rate >60 (60-); Glucose, Blood 107 mg/dL (70-99); Potassium, Blood 4.3 mmol/L (3.5-5.5); Sodium, Blood 138 mmol/L (136-145); Total Protein, Blood 6.8 g/dL (6.4-8.2)
--- NOTE | 2021-03-10 06:16 | NUR ---
FENTANYL CURATORIAL ASSISTANT PUMP IN PLACE. PT ALTERNATING BETWEEN HEATING PAD AND ICE PACK ON ANTIRE ABD. AT APPROX 0830, PT STATES EXCRUCIATING ACUTE PAIN. GIVEN PRN FENTANYL DOSE. MILD RELIF PER PT. DR JEREZ NOTIFIED, IV ATIVAN PRN ORDERED. +BS. DENIES N/V. LOW FAT DIET, TOLERATED CLEAR LIQUIDS THROUGHOUT SHIFT. NO OTHER ISSUES THROUGHOUT SHIFT. WILL CONTINUE TO MONITOR.
--- NOTE | 2021-03-11 05:56 | NUR ---
VSS. PAIN MANAGED W/ FENTANYL METAL FITTER PUMP. ATIVAN PRN GIVEN X1 FOR ANXIETY. NO ISSUES THROUGHOUT SHIFT.
--- NOTE | 2021-03-11 18:13 | NUR ---
PATIENT CURRENTLY SITTING UP IN BED WITH NO SIGNS OR SYMPTOMS ACUTE DISTRESS NOTED. COMPLAINS OF HAVING 3 LOOSE BOWEL MOVEMENTS TODAY. NOTIFIED MD, NEW ORDERS WRITTEN. WILL COLLECT STOOL THE NEXT TIME PATIENT HAS A BM. ASSEMBLY INSTRUCTIONS WRITER PUMP WILL BE DISCONTINUED WELL TODAY. CALL LIGHT AND WATER IN EASY REACH. ABLE TO MAKE NEEDS AND WANTS KNOWN. WILL MONITOR.
--- NOTE | 2021-03-12 03:58 | NUR ---
SHIFT SUMMARY A&O X 4. NO TELE. NO O2. LOW FAT DIET. R AC IV SALINE LOCKED. GI PANEL ORDERED, PT HAS NOT HAD BM. VSS. PT SHOWERED THIS EVENING WITH THE HELP OF HIS GIRLFRIEND. PT COMPLAINED OF PAIN AND WAS MEDICATED PER EMAR. PT ASKED FOR SLEEPING MEDS AND HIS ANXIETY MEDICATION. PT MEDICATED PER EMAR. PT LYING AWAKE WATCHING MOVIES ON HIS COMPUTER MOST OF THE NIGHT. NO ACUTE CHANGES. CALL LIGHT IS WITHIN REACH. WILL CONTINUE TO MONITOR.
[2021-03-12 09:49] LABS: Campylobacter Sp Not Detected (NOT DETECT); Plesiomonas Shigelloides Not Detected (NOT DETECT); Salmonella Sp Not Detected (NOT DETECT); Yersinia Enterocolitica Detected (NOT DETECT)
[2021-03-12 09:50] LABS: Adenovirus F 40/41 Not Detected (NOT DETECT); Astrovirus Not Detected (NOT DETECT); Cryptosporidium Not Detected (NOT DETECT); Cyclospora Cayetanensis Not Detected (NOT DETECT); E. Coli O157 Not Detected (NOT DETECT); Entamoeba Histolytica Not Detected (NOT DETECT); Enteroaggregative E. coli-EAEC Not Detected (NOT DETECT); Enteropathogenic E. coli-EPEC Not Detected (NOT DETECT); Enterotoxigenic E. coli-ETEC Not Detected (NOT DETECT); Giardia Lamblia Not Detected (NOT DETECT); Norovirus GI/GII Not Detected (NOT DETECT); Rotavirus A Not Detected (NOT DETECT); Sapovirus Not Detected (NOT DETECT); Shiga Toxin-prod E. coli-STEC Not Detected (NOT DETECT); Shigella/Enteroin E. coli-EIEC Not Detected (NOT DETECT); Vibrio Cholerae Not Detected (NOT DETECT); Vibrio Sp Not Detected (NOT DETECT)
[2021-03-12] MEDS ORDERED: CREON DR 3,0001 EACH PO (12:13)
[2021-03-12] MEDS ORDERED: VISBIOME 112.51 EACH PO (12:14)
[2021-03-12] MEDS ORDERED: PERCOCET 10-321 EAC1 PO (12:15)
[2021-03-12] MEDS ORDERED: MIRALAX17 GM PO (12:16)
--- NOTE | 2021-03-12 12:42 | NUR ---
DISCHARGE: DISCHARGE INSTUCTIONS GIVEN TO PATIENT AT THIS TIME. PATIENT VERBALIZED UNDERSTANDING. NO SIGNS OR SYMPTOMS ACUTE DISTRESS NOTED. PERSCRIPTIONS FAXED TO PHARMACY. PRESCRIPTIONS FOR NARCOTIC GIVEN TO PATIENT TO GET FILLED. PATIENT TO FOLLOW UP WITH PCP AND DR BATISTA, HE WILL CALL FOR APPOINTMENTS.
== END 2021-03-12 13:24 | disposition home or self-care (01) | DRG 439 ==
LOC: ER 17:45 → PCU 03-09 01:28 → SURS 03-09 01:28 → PCU 03-09 01:30 → SURS 03-09 07:21
PROVIDERS: Emergency Medicine; Internal Medicine; ADMIT Internal Medicine
DX: K86.3 Pseudocyst of pancreas (principal); A04.6 Enteritis due to Yersinia enterocolitica; Z20.822 Contact with and (suspected) exposure to COVID-19; K86.0 Alcohol-induced chronic pancreatitis; D75.839 Thrombocytosis, unspecified; F10.20 Alcohol dependence, uncomplicated; Z28.21 Immunization not carried out because of patient refusal; F41.9 Anxiety disorder, unspecified; Z79.899 Other long term (current) drug therapy
CPT/HCPCS: 0097U; 0241U; 36415; 71045; 74177; 80053; 83605; 83615; 83690; 83735; 85025; 96374; 96375; 96376; 99285-25; A9270; J1170; J1630; J1650; J1885; J2060; J2405; J3010; J7030; J7050; Q9967

== ENCOUNTER → 2021-03-08 | Outpatient (CLI) | payer OTHER ==
[~2021-03-08] MED LIST changes: +AMOCLA875 PO; +Acetaminophen650 M1 PO; +CREON DR 3,0001 EACH PO; +LACT PO; +MELATONIN5 M1 PO; +MIRALAX17 GM PO; +Norco 10-325 T1 EACH PO; +ONDA4ODT MM; +PANT40 PO; +PERCOCET 10-321 EAC1 PO; +SIME80CH PO; +VISBIOME 112.51 EACH PO
[2021-03-08 12:43] LABS: BASOPHILS ABSOLUTE AUTO 0.09 K/mm3 (0.00-0.23); BASOPHILS PERCENT AUTO 1 % (0-2); EOSINOPHILS ABSOLUTE AUTO 0.31 K/mm3 (0.00-0.68); EOSINOPHILS PERCENT AUTO 3 % (0-6); Hemoglobin 13.5 g/dL (13.5-17.5); IMMATURE GRAN ABSOLUTE AUTO 0.09 K/mm3 (0.00-0.10); IMMATURE GRAN PERCENT AUTO 1 % (0-1); LYMPHOCYTES ABSOLUTE AUTO 1.81 K/mm3 (0.84-5.20); LYMPHOCYTES PERCENT AUTO 15 % (21-46); MONOCYTES ABSOLUTE AUTO 0.78 K/mm3 (0.16-1.47); MONOCYTES PERCENT AUTO 7 % (4-13); Mean Corpuscular HGB 28.9 pg (26.0-34.0); Mean Corpuscular HGB Conc 32.1 g/dL (31.5-36.5); Mean Corpuscular Volume 90 fL (80-100); Mean Platelet Volume 9.8 fL (9.1-12.4); NEUTROPHILS ABSOLUTE AUTO 8.66 K/mm3 (1.96-9.15); NEUTROPHILS PERCENT AUTO 74 % (41-73); Platelet Count 961 K/mm3 (150-400); RDW Coefficient Variation 12.7 % (11.7-14.2); Red Blood Cell Count 4.67 M/mm3 (4.30-5.90); White Blood Cell Count 11.74 K/mm3 (4.00-11.30)
[2021-03-08 12:54] LABS: Alanine Aminotransfer (ALT/SGP 54 U/L (12-78); Albumin, Blood 3.7 g/dL (3.4-5.0); Albumin/Globulin Ratio 0.9 (0.8-1.8); Alk Phos 227 U/L (50-136); Anion Gap 10 mmol/L (6-16); Aspartate Aminotrans (AST/SGOT 32 U/L (12-37); Bilirubin, Total 0.4 mg/dL (0.1-1.0); Blood Urea Nitrogen 10 mg/dL (8-24); Bun/Creatinine Ratio 12.9 (12.0-20.0); CO2, Blood 27 mmol/L (21-32); Calcium, Blood 10.1 mg/dL (8.5-10.1); Chloride, Blood 100 mmol/L (98-108); Creatinine, Blood 0.78 mg/dL (0.60-1.20); Globulin, Blood 4.3 g/dL (2.2-4.0); Glomerular Filtration Rate >60 (60-); Glucose, Blood 93 mg/dL (70-99); Potassium, Blood 4.3 mmol/L (3.5-5.5); Sodium, Blood 137 mmol/L (136-145)
== END | disposition home or self-care (01) ==
LOC: LAB SHORT 10:30
PROVIDERS: Nurse Practitioner Family
DX: R10.84 Generalized abdominal pain (principal); Z87.19 Personal history of other diseases of the digestive system
CPT/HCPCS: 80053; 83690; 85025

== ENCOUNTER 2021-06-24 16:56 | Emergency (ER) | payer OTHER ==
[~2021-06-24] VITALS: Ht 170.2 cm; Wt 59.0 kg
[~2021-06-24 16:56] MED LIST changes: +CREON DR 3,0001 EACH PO; +IBUP600 PO; +PERCOCET 10-321 EAC1 PO; +VISBIOME 112.51 EACH PO
[2021-06-24 17:35] LABS: BASOPHILS ABSOLUTE AUTO 0.06 K/mm3 (0.00-0.23); BASOPHILS PERCENT AUTO 1 % (0-2); EOSINOPHILS ABSOLUTE AUTO 0.36 K/mm3 (0.00-0.68); EOSINOPHILS PERCENT AUTO 5 % (0-6); Hematocrit 44.8 % (37.0-53.0); Hemoglobin 14.3 g/dL (13.5-17.5); IMMATURE GRAN ABSOLUTE AUTO 0.01 K/mm3 (0.00-0.10); IMMATURE GRAN PERCENT AUTO 0 % (0-1); LYMPHOCYTES ABSOLUTE AUTO 2.15 K/mm3 (0.84-5.20); LYMPHOCYTES PERCENT AUTO 27 % (21-46); MONOCYTES ABSOLUTE AUTO 0.45 K/mm3 (0.16-1.47); MONOCYTES PERCENT AUTO 6 % (4-13); Mean Corpuscular HGB 27.2 pg (26.0-34.0); Mean Corpuscular HGB Conc 31.9 g/dL (31.5-36.5); Mean Corpuscular Volume 85 fL (80-100); Mean Platelet Volume 9.7 fL (9.1-12.4); NEUTROPHILS ABSOLUTE AUTO 5.02 K/mm3 (1.96-9.15); NEUTROPHILS PERCENT AUTO 62 % (41-73); Platelet Count 385 K/mm3 (150-400); RDW Coefficient Variation 15.2 % (11.7-14.2); RDW Standard Deviation 47.7 fL (35.1-46.3); Red Blood Cell Count 5.26 M/mm3 (4.30-5.90); White Blood Cell Count 8.05 K/mm3 (4.00-11.30)
[2021-06-24 17:59] LABS: Alanine Aminotransfer (ALT/SGP 19 U/L (12-78); Albumin, Blood 4.9 g/dL (3.4-5.0); Albumin/Globulin Ratio 1.5 (0.8-1.8); Alk Phos 133 U/L (50-136); Anion Gap 7 mmol/L (6-16); Aspartate Aminotrans (AST/SGOT 8 U/L (12-37); Bilirubin, Total 0.5 mg/dL (0.1-1.0); Blood Urea Nitrogen 14 mg/dL (8-24); Bun/Creatinine Ratio 17.8 (12.0-20.0); CO2, Blood 25 mmol/L (21-32); Calcium, Blood 9.7 mg/dL (8.5-10.1); Chloride, Blood 103 mmol/L (98-108); Creatinine, Blood 0.79 mg/dL (0.60-1.20); Globulin, Blood 3.3 g/dL (2.2-4.0); Glomerular Filtration Rate >60 (60-); Glucose, Blood 92 mg/dL (70-99); Potassium, Blood 3.8 mmol/L (3.5-5.5); Sodium, Blood 135 mmol/L (136-145); Total Protein, Blood 8.2 g/dL (6.4-8.2)
[2021-06-24 18:24] LABS: Source, Urine Clean Catch
[2021-06-24 18:26] LABS: Blood, Urine Neg (Neg); Glucose Qualitative, Urine Neg (Neg); Ketones, Urine 4+ (Neg); Leukocyte Esterase, Urine 1+ (Neg); Nitrite, Urine Neg (Neg); Protein, Urine 2+ (Neg); Specific Gravity, Urine 1.025 (1.003-1.022); Urobilinogen, Urine 2+ (Normal)
[2021-06-24 18:34] LABS: Appearance, Urine Hazy (Clear); Color, Urine Pale Yellow (P-Yellow)
[2021-06-24 18:40] LABS: Bacteria Rare /hpf; Bilirubin, Urine 1+ (Neg); Red Blood Cells, Urine 0-2 /hpf (0-2); Squamous Epithelial Cells Rare /hpf (Few)
[2021-06-24 18:41] LABS: Calcium Oxalate Crystals Rare /hpf; Mucus Heavy (0-Heavy)
[2021-06-24] MEDS ORDERED: Norco 5-325 Ta1 EACH PO (21:02)
[2021-06-27] MEDS ORDERED: CREON DR 12,001 EACH PO (20:27)
[2021-06-27] MEDS ORDERED: ONDA4ODT MM (20:27)
== END 2021-06-24 19:50 | disposition home or self-care (01) ==
LOC: ER 16:56
PROVIDERS: Physician Assistant
DX: K85.90 Acute pancreatitis without necrosis or infection, unspecified (principal)
CPT/HCPCS: 36415; 74177; 80053; 81001; 83690; 85025; 87086; 96374; 96375; 96376; 99284-25; J1170; J1885; J2405; J2550; J7030; Q9967

== ENCOUNTER 2021-06-28 21:45 | Emergency (ER) | payer OTHER ==
[~2021-06-28] VITALS: Ht 170.2 cm; Wt 59.0 kg
[~2021-06-28 21:45] MED LIST changes: +CREON DR 12,001 EACH PO; +Norco 5-325 Ta1 EACH PO
[2021-06-28 22:10] LABS: BASOPHILS PERCENT AUTO 1 % (0-2); EOSINOPHILS ABSOLUTE AUTO 0.47 K/mm3 (0.00-0.68); EOSINOPHILS PERCENT AUTO 4 % (0-6); Hematocrit 43.7 % (37.0-53.0); Hemoglobin 13.8 g/dL (13.5-17.5); IMMATURE GRAN ABSOLUTE AUTO 0.03 K/mm3 (0.00-0.10); IMMATURE GRAN PERCENT AUTO 0 % (0-1); LYMPHOCYTES ABSOLUTE AUTO 1.49 K/mm3 (0.84-5.20); LYMPHOCYTES PERCENT AUTO 14 % (21-46); MONOCYTES ABSOLUTE AUTO 0.58 K/mm3 (0.16-1.47); MONOCYTES PERCENT AUTO 5 % (4-13); Mean Corpuscular HGB Conc 31.6 g/dL (31.5-36.5); Mean Corpuscular Volume 85 fL (80-100); Mean Platelet Volume 10.3 fL (9.1-12.4); NEUTROPHILS ABSOLUTE AUTO 8.19 K/mm3 (1.96-9.15); NEUTROPHILS PERCENT AUTO 76 % (41-73); Platelet Count 354 K/mm3 (150-400); RDW Standard Deviation 47.8 fL (35.1-46.3); Red Blood Cell Count 5.12 M/mm3 (4.30-5.90); White Blood Cell Count 10.86 K/mm3 (4.00-11.30)
[2021-06-28 23:17] LABS: Alanine Aminotransfer (ALT/SGP 17 U/L (12-78); Albumin, Blood 4.2 g/dL (3.4-5.0); Albumin/Globulin Ratio 1.2 (0.8-1.8); Alk Phos 135 U/L (50-136); Anion Gap 6 mmol/L (6-16); Aspartate Aminotrans (AST/SGOT 32 U/L (12-37); Bilirubin, Total 0.6 mg/dL (0.1-1.0); Blood Urea Nitrogen 6 mg/dL (8-24); Bun/Creatinine Ratio 10.8 (12.0-20.0); CO2, Blood 25 mmol/L (21-32); Calcium, Blood 9.2 mg/dL (8.5-10.1); Chloride, Blood 105 mmol/L (98-108); Creatinine, Blood 0.56 mg/dL (0.60-1.20); Globulin, Blood 3.4 g/dL (2.2-4.0); Glomerular Filtration Rate >60 (60-); Glucose, Blood 93 mg/dL (70-99); Sodium, Blood 136 mmol/L (136-145); Total Protein, Blood 7.6 g/dL (6.4-8.2)
[2021-06-29 01:19] LABS: Source, Urine Clean Catch
[2021-06-29 01:21] LABS: Bilirubin, Urine Neg (Neg); Blood, Urine Neg (Neg); Glucose Qualitative, Urine Neg (Neg); Ketones, Urine 3+ (Neg); Leukocyte Esterase, Urine Neg (Neg); Nitrite, Urine Neg (Neg); Protein, Urine Neg (Neg); Urobilinogen, Urine NORM (Normal)
[2021-06-29 01:31] LABS: Appearance, Urine Clear (Clear); Color, Urine Yellow (P-Yellow)
== END 2021-06-29 02:17 | disposition home or self-care (01) ==
LOC: ER 21:45
PROVIDERS: Emergency Medicine; Physician Assistant
DX: R10.12 Left upper quadrant pain (principal); F17.200 Nicotine dependence, unspecified, uncomplicated
CPT/HCPCS: 36415; 80053; 81003; 83690; 85025; 96374; 96375; 99284-25; A9270; J1170; J1885; J2405; J7030

== ENCOUNTER 2021-07-04 00:18 | Emergency (ER) | payer OTHER ==
[~2021-07-04] VITALS: Ht 170.2 cm; Wt 59.0 kg
[2021-07-04 00:57] LABS: BASOPHILS ABSOLUTE AUTO 0.08 K/mm3 (0.00-0.23); BASOPHILS PERCENT AUTO 1 % (0-2); EOSINOPHILS ABSOLUTE AUTO 0.55 K/mm3 (0.00-0.68); EOSINOPHILS PERCENT AUTO 5 % (0-6); Hematocrit 47.3 % (37.0-53.0); Hemoglobin 14.9 g/dL (13.5-17.5); IMMATURE GRAN ABSOLUTE AUTO 0.03 K/mm3 (0.00-0.10); IMMATURE GRAN PERCENT AUTO 0 % (0-1); LYMPHOCYTES ABSOLUTE AUTO 1.92 K/mm3 (0.84-5.20); LYMPHOCYTES PERCENT AUTO 18 % (21-46); MONOCYTES ABSOLUTE AUTO 0.64 K/mm3 (0.16-1.47); MONOCYTES PERCENT AUTO 6 % (4-13); Mean Corpuscular HGB 26.8 pg (26.0-34.0); Mean Corpuscular HGB Conc 31.5 g/dL (31.5-36.5); Mean Corpuscular Volume 85 fL (80-100); Mean Platelet Volume 9.6 fL (9.1-12.4); NEUTROPHILS ABSOLUTE AUTO 7.57 K/mm3 (1.96-9.15); NEUTROPHILS PERCENT AUTO 70 % (41-73); Platelet Count 443 K/mm3 (150-400); RDW Coefficient Variation 14.9 % (11.7-14.2); RDW Standard Deviation 46.6 fL (35.1-46.3); Red Blood Cell Count 5.57 M/mm3 (4.30-5.90); White Blood Cell Count 10.79 K/mm3 (4.00-11.30)
[2021-07-04 01:18] LABS: Alanine Aminotransfer (ALT/SGP 16 U/L (12-78); Albumin, Blood 4.3 g/dL (3.4-5.0); Albumin/Globulin Ratio 1.3 (0.8-1.8); Alk Phos 152 U/L (50-136); Anion Gap 7 mmol/L (6-16); Aspartate Aminotrans (AST/SGOT 10 U/L (12-37); Bilirubin, Total 0.4 mg/dL (0.1-1.0); Blood Urea Nitrogen 13 mg/dL (8-24); Bun/Creatinine Ratio 17.2 (12.0-20.0); CO2, Blood 29 mmol/L (21-32); Calcium, Blood 9.7 mg/dL (8.5-10.1); Chloride, Blood 104 mmol/L (98-108); Creatinine, Blood 0.76 mg/dL (0.60-1.20); Globulin, Blood 3.4 g/dL (2.2-4.0); Glomerular Filtration Rate >60 (60-); Glucose, Blood 97 mg/dL (70-99); Potassium, Blood 3.7 mmol/L (3.5-5.5); Sodium, Blood 140 mmol/L (136-145); Total Protein, Blood 7.7 g/dL (6.4-8.2)
[2021-07-04] MEDS ORDERED: Bentyl20 MG PO (03:15)
== END 2021-07-04 03:24 | disposition home or self-care (01) ==
LOC: ER 00:18
PROVIDERS: Emergency Medicine
DX: K86.1 Other chronic pancreatitis (principal); F17.210 Nicotine dependence, cigarettes, uncomplicated; Z79.899 Other long term (current) drug therapy
CPT/HCPCS: 80053; 83690; 85025; 96374; 96375; 99284-25; A9270; J1170; J1885; J2405; J7030; J7120

== ENCOUNTER 2021-07-22 00:41 | Emergency (ER) | payer OTHER ==
[~2021-07-22] VITALS: Ht 170.2 cm; Wt 56.7 kg
[~2021-07-22 00:41] MED LIST changes: +Bentyl20 MG PO
[2021-07-22 03:51] LABS: BASOPHILS ABSOLUTE AUTO 0.05 K/mm3 (0.00-0.23); BASOPHILS PERCENT AUTO 0 % (0-2); EOSINOPHILS ABSOLUTE AUTO 0.24 K/mm3 (0.00-0.68); EOSINOPHILS PERCENT AUTO 2 % (0-6); Hematocrit 44.4 % (37.0-53.0); Hemoglobin 14.1 g/dL (13.5-17.5); IMMATURE GRAN ABSOLUTE AUTO 0.03 K/mm3 (0.00-0.10); IMMATURE GRAN PERCENT AUTO 0 % (0-1); LYMPHOCYTES ABSOLUTE AUTO 1.33 K/mm3 (0.84-5.20); LYMPHOCYTES PERCENT AUTO 9 % (21-46); MONOCYTES ABSOLUTE AUTO 0.82 K/mm3 (0.16-1.47); MONOCYTES PERCENT AUTO 6 % (4-13); Mean Corpuscular HGB 26.6 pg (26.0-34.0); Mean Corpuscular HGB Conc 31.8 g/dL (31.5-36.5); Mean Corpuscular Volume 84 fL (80-100); Mean Platelet Volume 9.3 fL (9.1-12.4); NEUTROPHILS ABSOLUTE AUTO 11.89 K/mm3 (1.96-9.15); NEUTROPHILS PERCENT AUTO 83 % (41-73); Platelet Count 509 K/mm3 (150-400); RDW Coefficient Variation 15.3 % (11.7-14.2); RDW Standard Deviation 46.5 fL (35.1-46.3); Red Blood Cell Count 5.31 M/mm3 (4.30-5.90); White Blood Cell Count 14.36 K/mm3 (4.00-11.30)
[2021-07-22 04:13] LABS: Alanine Aminotransfer (ALT/SGP 17 U/L (12-78); Albumin, Blood 4.2 g/dL (3.4-5.0); Albumin/Globulin Ratio 1.1 (0.8-1.8); Alk Phos 160 U/L (50-136); Anion Gap 12 mmol/L (6-16); Aspartate Aminotrans (AST/SGOT 10 U/L (12-37); Bilirubin, Total 0.8 mg/dL (0.1-1.0); Blood Urea Nitrogen 14 mg/dL (8-24); Bun/Creatinine Ratio 23.9 (12.0-20.0); CO2, Blood 23 mmol/L (21-32); Calcium, Blood 9.4 mg/dL (8.5-10.1); Chloride, Blood 102 mmol/L (98-108); Creatinine, Blood 0.59 mg/dL (0.60-1.20); Globulin, Blood 3.8 g/dL (2.2-4.0); Glomerular Filtration Rate >60 (60-); Glucose, Blood 78 mg/dL (70-99); Potassium, Blood 4.1 mmol/L (3.5-5.5); Sodium, Blood 137 mmol/L (136-145)
[2021-07-22] MEDS ORDERED: ONDA4ODT MM (05:07)
== END 2021-07-22 05:30 | disposition home or self-care (01) ==
LOC: ER 00:41
PROVIDERS: Student in an Organized Health Care Education/Training Program
DX: K86.1 Other chronic pancreatitis (principal); D72.829 Elevated white blood cell count, unspecified; F17.200 Nicotine dependence, unspecified, uncomplicated
CPT/HCPCS: 36415; 76705; 80053; 83690; 85025; 96374; 96375; 99284-25; A9270; J1170; J1885; J2270; J2405; J7030

== ENCOUNTER 2021-07-23 19:42 | Emergency (ER) | payer OTHER ==
[~2021-07-23] VITALS: Ht 170.2 cm; Wt 55.8 kg
[2021-07-23 20:43] LABS: BASOPHILS ABSOLUTE AUTO 0.04 K/mm3 (0.00-0.23); BASOPHILS PERCENT AUTO 0 % (0-2); EOSINOPHILS ABSOLUTE AUTO 0.13 K/mm3 (0.00-0.68); EOSINOPHILS PERCENT AUTO 1 % (0-6); Hematocrit 39.6 % (37.0-53.0); Hemoglobin 12.6 g/dL (13.5-17.5); IMMATURE GRAN ABSOLUTE AUTO 0.05 K/mm3 (0.00-0.10); IMMATURE GRAN PERCENT AUTO 0 % (0-1); LYMPHOCYTES ABSOLUTE AUTO 0.98 K/mm3 (0.84-5.20); LYMPHOCYTES PERCENT AUTO 7 % (21-46); MONOCYTES ABSOLUTE AUTO 0.92 K/mm3 (0.16-1.47); MONOCYTES PERCENT AUTO 7 % (4-13); Mean Corpuscular HGB 26.7 pg (26.0-34.0); Mean Corpuscular HGB Conc 31.8 g/dL (31.5-36.5); Mean Corpuscular Volume 84 fL (80-100); Mean Platelet Volume 9.8 fL (9.1-12.4); NEUTROPHILS ABSOLUTE AUTO 11.91 K/mm3 (1.96-9.15); NEUTROPHILS PERCENT AUTO 85 % (41-73); Platelet Count 403 K/mm3 (150-400); RDW Coefficient Variation 15.2 % (11.7-14.2); RDW Standard Deviation 46.5 fL (35.1-46.3); Red Blood Cell Count 4.72 M/mm3 (4.30-5.90); White Blood Cell Count 14.03 K/mm3 (4.00-11.30)
[2021-07-23 21:03] LABS: Alanine Aminotransfer (ALT/SGP 12 U/L (12-78); Albumin, Blood 3.8 g/dL (3.4-5.0); Alk Phos 151 U/L (50-136); Anion Gap 14 mmol/L (6-16); Aspartate Aminotrans (AST/SGOT 9 U/L (12-37); Bilirubin, Total 0.6 mg/dL (0.1-1.0); Blood Urea Nitrogen 9 mg/dL (8-24); Bun/Creatinine Ratio 16.9 (12.0-20.0); CO2, Blood 23 mmol/L (21-32); Calcium, Blood 9.7 mg/dL (8.5-10.1); Chloride, Blood 99 mmol/L (98-108); Creatinine, Blood 0.53 mg/dL (0.60-1.20); Globulin, Blood 3.9 g/dL (2.2-4.0); Glomerular Filtration Rate >60 (60-); Glucose, Blood 83 mg/dL (70-99); Potassium, Blood 3.8 mmol/L (3.5-5.5); Sodium, Blood 136 mmol/L (136-145); Total Protein, Blood 7.7 g/dL (6.4-8.2)
== END 2021-07-24 02:02 | disposition home or self-care (01) ==
LOC: ER 19:42
PROVIDERS: Physician Assistant
DX: K86.1 Other chronic pancreatitis (principal); F17.200 Nicotine dependence, unspecified, uncomplicated
CPT/HCPCS: 36415; 80053; 83690; 84484; 85025; 93005; 93010; 96374; 96375; 96376; 99284-25; C9113; J1170; J2405; J7030

== ENCOUNTER 2021-11-13 23:30 | Inpatient (IN) | payer OTHER ==
[~2021-11-13] VITALS: Ht 170.2 cm; Wt 53.3 kg
[2021-11-14 01:16] LABS: BASOPHILS ABSOLUTE AUTO 0.07 K/mm3 (0.00-0.23); BASOPHILS PERCENT AUTO 0 % (0-2); EOSINOPHILS ABSOLUTE AUTO 0.14 K/mm3 (0.00-0.68); EOSINOPHILS PERCENT AUTO 1 % (0-6); Hematocrit 45.4 % (37.0-53.0); Hemoglobin 14.5 g/dL (13.5-17.5); IMMATURE GRAN ABSOLUTE AUTO 0.08 K/mm3 (0.00-0.10); IMMATURE GRAN PERCENT AUTO 0 % (0-1); LYMPHOCYTES ABSOLUTE AUTO 2.51 K/mm3 (0.84-5.20); LYMPHOCYTES PERCENT AUTO 13 % (21-46); MONOCYTES ABSOLUTE AUTO 1.27 K/mm3 (0.16-1.47); MONOCYTES PERCENT AUTO 6 % (4-13); Mean Corpuscular HGB 27.5 pg (26.0-34.0); Mean Corpuscular HGB Conc 31.9 g/dL (31.5-36.5); Mean Corpuscular Volume 86 fL (80-100); Mean Platelet Volume 10.2 fL (9.1-12.4); NEUTROPHILS ABSOLUTE AUTO 15.73 K/mm3 (1.96-9.15); NEUTROPHILS PERCENT AUTO 79 % (41-73); Platelet Count 312 K/mm3 (150-400); RDW Coefficient Variation 14.1 % (11.7-14.2); RDW Standard Deviation 44.7 fL (35.1-46.3); Red Blood Cell Count 5.27 M/mm3 (4.30-5.90)
[2021-11-14 01:33] LABS: Albumin, Blood 4.4 g/dL (3.4-5.0); Albumin/Globulin Ratio 1.3 (0.8-1.8); Bilirubin, Total 0.5 mg/dL (0.1-1.0); Bun/Creatinine Ratio 24.9 (12.0-20.0); Calcium, Blood 9.3 mg/dL (8.5-10.1); Creatinine, Blood 0.68 mg/dL (0.60-1.20); Globulin, Blood 3.3 g/dL (2.2-4.0); Potassium, Blood 3.9 mmol/L (3.5-5.5); Total Protein, Blood 7.7 g/dL (6.4-8.2)
--- NOTE | 2021-11-14 12:40 | NUR ---
ADMIT NOTE PATIENT ADMITTED FROM ER AT 1010. PATIENT SETTLED INTO ROOM. PATIENT ORIENTED TO CALL LIGHT. PATIENT GRILFRIEND AT BEDSIDE. ADMISSION COMPLETE. PATIENT HAIVNG 10/10 PAIN. PATIENT HUNCHED OVER, GRABBING AT STOMACH, GROANING, WHINCING. PATIENT MEDICATED FOR PAIN, NOT MUCH EFFECT. DR. KEANE NOTIFIED, NEW ORDERS. NS STARTED AT 100MLS/HR. HEATING PAD FOR ABDOMEN AND ICE PACK FOR NECK. PATIENT REPORTS SOME RELIEF.
--- NOTE | 2021-11-14 18:53 | NUR ---
SHIFT SUMMARY PATIENT MEDICATED FOR PAIN X4, NAUSEA X2, AND SHORTNESS OF BREATH. PATIENT IS IND IN ROOM, BUT STAYING IN BED DUE TO EXTREME PAIN WITH MOVEMENT. PATIENT HAS FAMILY AT BEDSIDE, PER AUTOMATIC BUFFER, MOTHER OF PATIENT OKAY TO STAY THE NIGHT. PATIENT IS NPO. PATIENT IS PLEASANT AND COOPERATIVE WITH CARE.
--- NOTE | 2021-11-15 00:57 | NUR ---
patient rocking and moaning very audibly. holding warm kpad to gut and ice pack to back of neck. currently calling and requesting 1mg dilaudid every 2 hours, and zofran every 4 hours. Patient's mother is in room and is also unable to calm down to help the patient try to relax. Will call night hospitalist to discuss and possibly get something to relax this young man and allow him to rest.
[2021-11-15 04:51] LABS: BASOPHILS ABSOLUTE AUTO 0.03 K/mm3 (0.00-0.23); BASOPHILS PERCENT AUTO 0 % (0-2); EOSINOPHILS ABSOLUTE AUTO 0.08 K/mm3 (0.00-0.68); EOSINOPHILS PERCENT AUTO 1 % (0-6); Hematocrit 41.7 % (37.0-53.0); Hemoglobin 13.5 g/dL (13.5-17.5); IMMATURE GRAN ABSOLUTE AUTO 0.04 K/mm3 (0.00-0.10); IMMATURE GRAN PERCENT AUTO 0 % (0-1); LYMPHOCYTES ABSOLUTE AUTO 2.22 K/mm3 (0.84-5.20); LYMPHOCYTES PERCENT AUTO 15 % (21-46); MONOCYTES ABSOLUTE AUTO 1.68 K/mm3 (0.16-1.47); MONOCYTES PERCENT AUTO 12 % (4-13); Mean Corpuscular HGB 27.7 pg (26.0-34.0); Mean Corpuscular HGB Conc 32.4 g/dL (31.5-36.5); Mean Corpuscular Volume 86 fL (80-100); NEUTROPHILS ABSOLUTE AUTO 10.54 K/mm3 (1.96-9.15); NEUTROPHILS PERCENT AUTO 72 % (41-73); Platelet Count 280 K/mm3 (150-400); RDW Coefficient Variation 13.8 % (11.7-14.2); RDW Standard Deviation 42.9 fL (35.1-46.3); Red Blood Cell Count 4.87 M/mm3 (4.30-5.90); White Blood Cell Count 14.59 K/mm3 (4.00-11.30)
[2021-11-15 05:10] LABS: Albumin, Blood 3.2 g/dL (3.4-5.0); Albumin/Globulin Ratio 1.1 (0.8-1.8); Bilirubin, Total 0.7 mg/dL (0.1-1.0); Calcium, Blood 8.9 mg/dL (8.5-10.1); Creatinine, Blood 0.58 mg/dL (0.60-1.20); Potassium, Blood 4.3 mmol/L (3.5-5.5); Total Protein, Blood 6.2 g/dL (6.4-8.2)
--- NOTE | 2021-11-15 08:07 | NUR ---
PATIENT AND MOTHER AWAKE MOST OF THE NIGHT. CALLS SEVERE UPPER ABD PAIN, AND THE EVENING PROGRESSED, PATIENT ALSO COMPLAINED OF A SEVERE NECK ACHE WELL A HEADACHE. MYNOR'S MOTHER WHO NEVER LEFT HIS BEDSIDE WAS VERY ANXIOUS WAS THE PATIENT UNTIL AN ORDER WAS OBTAINED FOR IV ATIVAN. 1 MG WAS GIVEN AT 0230 WITH HIS DILAUDED (REQUESTED AND GIVEN EVERY 2 HOURS) WELL ZOFRAN WHICH THE PATIENT REQUESTED AND RECEIVED EVVERY 4 HOURS. PATIENT VERY FEARFUL OF HOW HIS LIFE COULD GO ON LIKE THIS WITHOUT ANY SOLID RELIEF. HE FINALLY WAS ABLE TO GET A FEW MINUTES OF RELAXED BREATHING ONCE THE ANTI ANXIETY WAS GIVEN. THIS RN IS CONCERNED THAT HE WILL NEVER GET ANY REST IF HE THINKS HE MIGHT MISS A DOSE OF DILAUDID.
--- NOTE | 2021-11-15 17:01 | NUR ---
SHIFT SUMMARY: NO ACUTE EVENTS. C/O PAIN IN UPPER ABDOMEN, NECK, L SHOULDER; MEDICATED Q2 HOURS PER EMAR WITH SOME RELIEF. MOTHER AT BEDSIDE, TENDS TO SPEAK FOR HIM; EDUCATED THAT PAIN ASSESSMENT MUST COME FROM PATIENT NOT HER OBSERVATIONS. NICOTINE PATCH PLACED FOR CRAVING (SMOKES PIPE TOBACCO AT HOME), WHICH MAY BE PART OF HIS ANXIETY. TOLERATING ICE CHIPS. WAS ABLE TO TAKE A SHOWER TODAY. USING BR INDEPENDENTLY.
[2021-11-16 04:32] LABS: BASOPHILS ABSOLUTE AUTO 0.05 K/mm3 (0.00-0.23); BASOPHILS PERCENT AUTO 0 % (0-2); EOSINOPHILS ABSOLUTE AUTO 0.06 K/mm3 (0.00-0.68); EOSINOPHILS PERCENT AUTO 0 % (0-6); Hematocrit 42.2 % (37.0-53.0); Hemoglobin 13.7 g/dL (13.5-17.5); IMMATURE GRAN ABSOLUTE AUTO 0.05 K/mm3 (0.00-0.10); IMMATURE GRAN PERCENT AUTO 0 % (0-1); LYMPHOCYTES ABSOLUTE AUTO 1.61 K/mm3 (0.84-5.20); LYMPHOCYTES PERCENT AUTO 11 % (21-46); MONOCYTES ABSOLUTE AUTO 1.76 K/mm3 (0.16-1.47); MONOCYTES PERCENT AUTO 13 % (4-13); Mean Corpuscular HGB 27.5 pg (26.0-34.0); Mean Corpuscular HGB Conc 32.5 g/dL (31.5-36.5); Mean Corpuscular Volume 85 fL (80-100); Mean Platelet Volume 10.9 fL (9.1-12.4); NEUTROPHILS ABSOLUTE AUTO 10.56 K/mm3 (1.96-9.15); NEUTROPHILS PERCENT AUTO 75 % (41-73); Platelet Count 292 K/mm3 (150-400); RDW Coefficient Variation 13.7 % (11.7-14.2); RDW Standard Deviation 42.8 fL (35.1-46.3); Red Blood Cell Count 4.98 M/mm3 (4.30-5.90); White Blood Cell Count 14.09 K/mm3 (4.00-11.30)
[2021-11-16 04:52] LABS: Albumin, Blood 3.3 g/dL (3.4-5.0); Anion Gap 13 mmol/L (6-16); Blood Urea Nitrogen 9 mg/dL (8-24); Bun/Creatinine Ratio 18.2 (12.0-20.0); CO2, Blood 23 mmol/L (21-32); Calcium, Blood 8.9 mg/dL (8.5-10.1); Chloride, Blood 101 mmol/L (98-108); Glomerular Filtration Rate 145 (60-); Glucose, Blood 88 mg/dL (70-99); Phosphorus, Blood 2.3 mg/dL (2.5-4.9); Potassium, Blood 3.8 mmol/L (3.5-5.5); Sodium, Blood 137 mmol/L (136-145)
--- NOTE | 2021-11-16 08:16 | NUR ---
NO CHANGES OVERNIGHT. COMPLAINTS OF ABD, SHOULDERS AND NECK PAIN 9/10 OR 10 CONSTANTLY. REQUESTING AND RECEIVING DILAUDID EVERY TWO HOURS, ATIVAN EVERY EIGHT (I DO THIINK THIS HELPS HIM MUCH OR MORE THAN THE DILAUDID.) MYNOR IS A VERY TIRED, FRIGHTENED AND EMOTIONAL YOUNG MAN. HIS MOTHER DOES APPEAR TO MIRROR OR ENHANCE HIS ANXIETY.
--- NOTE | 2021-11-16 18:30 | NUR ---
SHIFT SUMMARY: C/O SEVERE L NECK AND ABD PAIN; DILAUDID IV BEING GIVEN Q2H ATC, ONE TIME DOSE OF FLEXERIL GAVE THE MOST RELIEF HE'S HAS IN TWO DAYS. STATED THAT NECK PAIN IS WORSE THAN ABD PAIN AT THIS POINT. GOT ABOUT 2.5 HOURS OF UNINTERRUPTED SLEEP. PHOS REPLACED. STATED HE WAS HAVING TROUBLE WITH URINATION; PVR SHOWED 39 ML REMAINING. ENCOURAGED PO FLUIDS, IS NOW ON CLEAR LIQ DIET, TOLERATES PEPPERMINT TEA WELL. FIANCE AND MOTHER AT BEDSIDE.
--- NOTE | 2021-11-16 23:37 | NUR ---
2011 PT REPORTS PAIN IN L BACK/RIBS/NECK, DENIES NAUSEA, REPORTS SOB WITH PAIN, ON RA AT 97%. REPORTS ANXIETY. WILL MEDICATE ORDERED AND EVAL FOR EFFECT. PT ALSO HAS A TEMP OF 99.9. NO OTHER APPARENT SIGNS OF DISTRESS. CALL LIGHT IS IN REACH. FIANCE IN ROOM. 2205 PT'S TEMP IS NOW 99.9. PT LYING IN BED, REQUESTED AND RECIEVED PAIN MEDS, WILL EVAL FOR EFFECT. PT DENIES NEED FOR ANYTHING ELSE AT THIS TIME. NO OTHER APPARENT SIGNS OF DISTRESS. CALL LIGHT IS IN REACH. FIANCE IS IN ROOM. 2245 PT REQUESTED AND RECIEVED ZOFRAN, REPORTS NAUSEA BUT NO ACTUAL VOMITING. WILL EVAL FOR EFFECT. NO OTHER APPARENT SIGNS OF DISTRESS. CALL LIGHT IS IN REACH. FIANCE IS IN ROOM.
--- NOTE | 2021-11-17 00:24 | NUR ---
PT REQUESTED AND RECIEVED PAIN MEDS, WILL EVAL FOR EFFECT. PT IS GOING TO GET INTO THE SHOWER. NO OTHER APPARENT SIGNS OF DISTRESS. CALL LIGHT IS IN REACH. FIANCE IS IN ROOM.
--- NOTE | 2021-11-17 05:04 | NUR ---
0210 PT REQUESTED AND RECIEVED PAIN MEDS, WILL EVAL FOR EFFECT. NO OTHER APPARENT SIGNS OF DISTRESS. CALL LIGHT IS IN REACH. FIANCE IS IN ROOM.
--- NOTE | 2021-11-17 05:05 | NUR ---
PT IS AAO X 4, ON RA. REPORTS SOB WITH PAIN. ON RA HE IS AT 97%. REPORTS PAIN IN L BACK/RIBS/NECK, GOT DILAUDED MULT TIMES. HAD ANXIETY, GOT ATIVAN AT HS. HAD NAUSEA, GOT ZOFRAN X 1. HAD TEMP OF 99.9, GOT TYLENOL X 1.
--- NOTE | 2021-11-17 05:05 | NUR ---
PT LYING IN BED, EYES CLOSED, APPEARS TO BE RESTING. WAKES EASILY TO VERBAL STIMULI. NO APPARENT SIGNS OF DISTRESS. CALL LIGHT IS IN REACH. PT DENIES ANY PAIN AT THIS TIME. FIANCE IS IN ROOM.
--- NOTE | 2021-11-17 06:04 | NUR ---
1810 PT REQUESTED AND RECIEVED PAIN MEDS, WILL EVAL FOR EFFECT. NO OTHER APPARENT SIGNS OF DISTRESS. PT DENIES NEED FOR ANYTHING ELSE AT THIS TIME. CALL LIGHT IS IN REACH. FIANCE IS IN ROOM. NO OTHER CHANGES THIS SHIFT.
[2021-11-17 06:24] LABS: BASOPHILS ABSOLUTE AUTO 0.04 K/mm3 (0.00-0.23); BASOPHILS PERCENT AUTO 0 % (0-2); EOSINOPHILS ABSOLUTE AUTO 0.08 K/mm3 (0.00-0.68); EOSINOPHILS PERCENT AUTO 1 % (0-6); Hemoglobin 12.3 g/dL (13.5-17.5); IMMATURE GRAN ABSOLUTE AUTO 0.04 K/mm3 (0.00-0.10); IMMATURE GRAN PERCENT AUTO 0 % (0-1); LYMPHOCYTES ABSOLUTE AUTO 1.95 K/mm3 (0.84-5.20); LYMPHOCYTES PERCENT AUTO 15 % (21-46); MONOCYTES ABSOLUTE AUTO 1.28 K/mm3 (0.16-1.47); MONOCYTES PERCENT AUTO 10 % (4-13); Mean Corpuscular HGB 27.3 pg (26.0-34.0); Mean Corpuscular HGB Conc 32.4 g/dL (31.5-36.5); Mean Corpuscular Volume 84 fL (80-100); Mean Platelet Volume 10.6 fL (9.1-12.4); NEUTROPHILS ABSOLUTE AUTO 9.31 K/mm3 (1.96-9.15); NEUTROPHILS PERCENT AUTO 73 % (41-73); Platelet Count 332 K/mm3 (150-400); RDW Coefficient Variation 13.7 % (11.7-14.2); RDW Standard Deviation 42.6 fL (35.1-46.3); Red Blood Cell Count 4.51 M/mm3 (4.30-5.90)
[2021-11-17 06:40] LABS: Albumin, Blood 2.9 g/dL (3.4-5.0); Anion Gap 9 mmol/L (6-16); Blood Urea Nitrogen 10 mg/dL (8-24); Bun/Creatinine Ratio 22.1 (12.0-20.0); CO2, Blood 27 mmol/L (21-32); Calcium, Blood 8.7 mg/dL (8.5-10.1); Chloride, Blood 101 mmol/L (98-108); Creatinine, Blood 0.45 mg/dL (0.60-1.20); Glomerular Filtration Rate 150 (60-); Glucose, Blood 82 mg/dL (70-99); Phosphorus, Blood 2.7 mg/dL (2.5-4.9); Potassium, Blood 3.8 mmol/L (3.5-5.5); Sodium, Blood 137 mmol/L (136-145)
--- NOTE | 2021-11-17 11:43 | NUR ---
Spiritual Care - Nurse Referral Pt. is in bed and is quietly cathertic during the entire visit. SO Anthony is present and verblizes that the Pt. has not been sigificanlty verbal for some time, especially with the pain he is experiencing. Pt. remians mostly non responsive, but SO is engaged with spiritual care. Listen with a calming presence to the medical life review of the Pt. Prepared SO for an expected reponse from physicians, by normalizing the pt. experience. SO and Pt. acknowledged a desire to have me return. Reported to to nurse, and will continue to monitor.
--- NOTE | 2021-11-17 19:29 | NUR ---
SHIFT SUMMARY A&O X 4. VSS. PT HAS BEEN MEDICATED THROUGHOUT SHIFT WITH DIALUDID ATC PER MD ORDERS. HE RECEIVED ATIVAN ONCE FOR ELEVATED ANXIETY AND ZOFRAN AT CHANGE OF SHIFT. PT REQUESTED RN CALL MD AND ASK FOR TORADOL TO HELP WITH PAIN. CALL PLACED TO DR. JEREZ, RECEIVED ORDERS FOR TORADOL. EQUALIZING SAW OPERATOR CAME TO VISIT PT TODAY PER RN REQUEST.
--- NOTE | 2021-11-17 22:22 | NUR ---
1999 PT REPORTS PAIN IN L RIBS/BACK/NECK OF 4/10. SLIGHT NAUSEA BUT MUCH IMPROVED AFTER GETTING ZOFRAN. DECLINES MEDS AT THIS TIME. NO OTHER APPARENT SIGNS OF DISTRESS. PT DENIES NEED FOR ANYTHING ELSE AT THIS TIME. CALL LIGHT IS IN REACH. FIANCE IS IN ROOM. 2199 PT LYING IN BED, REPORTS PAIN IS STILL A 4/10 AND HE DOES NOT FEEL LIKE HE NEEDS PAIN MEDS AT THIS TIME. NO NAUSEA. NO OTHER APPARENT SIGNS OF DISTRESS. DENIES NEED FOR ANYTHING ELSE AT THIS TIME. CALL LIGHT IS IN REACH. FIANCE IS IN ROOM.
--- NOTE | 2021-11-18 00:05 | NUR ---
2330 PT REQUESTED AND RECIEVED ATIVAN, RATES PAIN AT ABOUT A 5/10, DECLINES PAIN MEDS FOR NOW. NO OTHER APPARENT SIGNS OF DISTRESS. CALL LIGHT IS IN REACH.
--- NOTE | 2021-11-18 02:55 | NUR ---
0200 PT LYING IN BED, EYES CLOSED, APPEARS TO BE RESTING. BREATHING IS EVEN, UNLABORED. NO APPARENT SIGNS OF DISTRESS. CALL LIGHT IS IN REACH. FIANCE IS IN ROOM.
--- NOTE | 2021-11-18 03:58 | NUR ---
PT LYING IN BED, EYES CLOSED, APPEARS TO BE RESTING. BREATHING IS EVEN, UNALBORED. NO APPARENT SIGNS OF DISTRESS. CALL LIGHT IS IN REACH. FIANCE IS IN ROOM.
--- NOTE | 2021-11-18 03:58 | NUR ---
PT IS AAO X 4, ON RA. REPORTED SLIGHT NAUSEA BUT HAD JUST RECIEVED ZOFRAN, ZERO NAUSEA AFTER THAT. REPORTED ABD PAIN, GOT TORADOL X 1. ANXIETY, GOT ATIVAN X 1. NO BM SINCE 11/12/21, GOT BOWEL CARE ORDERED, PT PREFERS TO START THIS AM.
[2021-11-18 04:47] LABS: BASOPHILS ABSOLUTE AUTO 0.05 K/mm3 (0.00-0.23); BASOPHILS PERCENT AUTO 0 % (0-2); EOSINOPHILS ABSOLUTE AUTO 0.07 K/mm3 (0.00-0.68); EOSINOPHILS PERCENT AUTO 1 % (0-6); Hematocrit 39.1 % (37.0-53.0); Hemoglobin 12.4 g/dL (13.5-17.5); IMMATURE GRAN ABSOLUTE AUTO 0.03 K/mm3 (0.00-0.10); IMMATURE GRAN PERCENT AUTO 0 % (0-1); LYMPHOCYTES ABSOLUTE AUTO 1.94 K/mm3 (0.84-5.20); LYMPHOCYTES PERCENT AUTO 17 % (21-46); MONOCYTES PERCENT AUTO 13 % (4-13); Mean Corpuscular HGB 27.1 pg (26.0-34.0); Mean Corpuscular HGB Conc 31.7 g/dL (31.5-36.5); Mean Corpuscular Volume 85 fL (80-100); NEUTROPHILS ABSOLUTE AUTO 8.13 K/mm3 (1.96-9.15); NEUTROPHILS PERCENT AUTO 69 % (41-73); Platelet Count 322 K/mm3 (150-400); RDW Coefficient Variation 13.8 % (11.7-14.2); RDW Standard Deviation 42.9 fL (35.1-46.3); Red Blood Cell Count 4.58 M/mm3 (4.30-5.90); White Blood Cell Count 11.72 K/mm3 (4.00-11.30)
[2021-11-18 05:03] LABS: Albumin, Blood 2.8 g/dL (3.4-5.0); Anion Gap 6 mmol/L (6-16); Blood Urea Nitrogen 13 mg/dL (8-24); Bun/Creatinine Ratio 24.6 (12.0-20.0); CO2, Blood 30 mmol/L (21-32); Calcium, Blood 8.8 mg/dL (8.5-10.1); Chloride, Blood 102 mmol/L (98-108); Creatinine, Blood 0.53 mg/dL (0.60-1.20); Glomerular Filtration Rate 143 (60-); Glucose, Blood 83 mg/dL (70-99); Phosphorus, Blood 3.4 mg/dL (2.5-4.9); Potassium, Blood 4.1 mmol/L (3.5-5.5); Sodium, Blood 138 mmol/L (136-145)
--- NOTE | 2021-11-18 05:32 | NUR ---
PT LYING IN BED, EYES CLOSED, APPEARS TO BE RESTING.BREATHING IS EVEN, UNLABORED. NO APPARENT SIGNS OF DISTRESS. CALL LIGHT IS IN REACH. FIANCE IN ROOM. NO OTHER CHANGES THIS SHIFT.
--- NOTE | 2021-11-18 14:19 | NUR ---
NEW PIV PIV IN R FA LEAKING. DC'D WITH CATH TIP INTACT, NO REDNESS OR SWELLING NOTED AT SITE. NEW PIV STARTED IN L FA WITH 20G X 3 ATTEMPTS.
[2021-11-18] MEDS ORDERED: NOVOLOG100 UNIT/2 INJ (14:54)
--- NOTE | 2021-11-18 18:51 | NUR ---
SHIFT SUMMARY A&O X 4. VSS. PAIN, NAUSEA AND ANXIETY MEDICATED TODAY PER EMAR. PT IS TOLERATING FULL LIQ DIET & SEEMS TO WANT TO TRY TO ADVANCE HIS DIET TOLERATED. IS INDEPENDENT IN THE ROOM FOR RESTROOM USE.
--- NOTE | 2021-11-19 05:10 | NUR ---
SUMMARY PT CONTINUES TO REPORT PAIN AND ABD DISCOMFORT. PT TX PER EMAR WITH RELIEF. PT HAS A EPISODE OF NAUSEA AND WAS TREATED AND RELIEVED. PT HAS BEEN AWAKE FOR MAJORITY OF SHIFT. PT HAS BEEN PRESENT THROUGHOUT SHIFT. PT CURRENTLY RESTING AND COMFORTABLE.
[2021-11-19 08:29] LABS: BASOPHILS ABSOLUTE AUTO 0.04 K/mm3 (0.00-0.23); BASOPHILS PERCENT AUTO 0 % (0-2); EOSINOPHILS ABSOLUTE AUTO 0.12 K/mm3 (0.00-0.68); EOSINOPHILS PERCENT AUTO 1 % (0-6); Hematocrit 37.6 % (37.0-53.0); Hemoglobin 12.7 g/dL (13.5-17.5); IMMATURE GRAN ABSOLUTE AUTO 0.08 K/mm3 (0.00-0.10); IMMATURE GRAN PERCENT AUTO 1 % (0-1); LYMPHOCYTES ABSOLUTE AUTO 1.79 K/mm3 (0.84-5.20); LYMPHOCYTES PERCENT AUTO 17 % (21-46); MONOCYTES ABSOLUTE AUTO 1.28 K/mm3 (0.16-1.47); MONOCYTES PERCENT AUTO 12 % (4-13); Mean Corpuscular HGB 27.7 pg (26.0-34.0); Mean Corpuscular HGB Conc 33.8 g/dL (31.5-36.5); Mean Corpuscular Volume 82 fL (80-100); Mean Platelet Volume 9.6 fL (9.1-12.4); NEUTROPHILS ABSOLUTE AUTO 7.35 K/mm3 (1.96-9.15); NEUTROPHILS PERCENT AUTO 69 % (41-73); Platelet Count 344 K/mm3 (150-400); RDW Coefficient Variation 13.8 % (11.7-14.2); RDW Standard Deviation 41.1 fL (35.1-46.3); Red Blood Cell Count 4.59 M/mm3 (4.30-5.90); White Blood Cell Count 10.66 K/mm3 (4.00-11.30)
[2021-11-19 08:34] LABS: Albumin, Blood 2.9 g/dL (3.4-5.0); Anion Gap 6 mmol/L (6-16); Blood Urea Nitrogen 13 mg/dL (8-24); Bun/Creatinine Ratio 49.8 (12.0-20.0); CO2, Blood 29 mmol/L (21-32); Calcium, Blood 8.9 mg/dL (8.5-10.1); Chloride, Blood 103 mmol/L (98-108); Creatinine, Blood 0.26 mg/dL (0.60-1.20); Glomerular Filtration Rate 177 (60-); Glucose, Blood 93 mg/dL (70-99); Phosphorus, Blood 3.5 mg/dL (2.5-4.9); Potassium, Blood 4.1 mmol/L (3.5-5.5); Sodium, Blood 138 mmol/L (136-145)
--- NOTE | 2021-11-19 17:05 | NUR ---
PT IS A/OX4, PLEASANT AND COOPERATIVE THE PT IS UP IND IN HIS ROOM. THE PT THIS AM CONTINUED TO HAVE LEFT SIDED PAIN 6-7/10 AND WITH SOME MODERATE DECREASE AFTER PAIN MEDICATION ADMINISTRATIONS. AT AROUND 1500 THIS AFTERNOON THE PT BECAME TEARFULL AND CRYING OUTLOUD DOUBLED UP AND HOLDING HIS LEFT SIDE. WAS CALLED AND CAME TO SEE THE PT, IV FENTNYL WAS GIVEN THE PTS PAIN SUBSIDED. THE PT WAS TAKEN TO CT AND DR. ZENG CONSULTED ON THE PT. THE PT IS NPO AT THIS TIME. PTS SO IS AT THE BEDSIDE, CALL LIGHT IN REACH. WILL CONTINUE TO MONITOR AND ASSESS FOR CHANGES.
--- NOTE | 2021-11-20 04:36 | NUR ---
SHIFT SUMMARY PT CONTINUES TO HAVE LEFT SIDED ABD PAIN. MEDICATED PER EMAR. PT ANXIOUS ABOUT DIAGNOSIS AND ABOUT PAIN. ONE DOSE OF IV ATIVAN GIVEN THIS EVENING. SIGNIFICANT OTHER AT BEDSIDE THROUGHOUT THE NIGHT. PT SLEPT OFF AND ON. DR. KEANE AT BEDSIDE AT START OF SHIFT TO DISCUSS TRANSFER TO HIGHER LEVEL OF CARE ONCE SOMEWHERE HAS A BED AVAILABLE. NO ACUTE EVENTS THIS EVENING. VITAL SIGNS STABLE. WILL CONTINUE TO MONITOR.
[2021-11-20 05:02] LABS: BASOPHILS ABSOLUTE AUTO 0.05 K/mm3 (0.00-0.23); BASOPHILS PERCENT AUTO 1 % (0-2); EOSINOPHILS ABSOLUTE AUTO 0.14 K/mm3 (0.00-0.68); EOSINOPHILS PERCENT AUTO 2 % (0-6); Hematocrit 35.6 % (37.0-53.0); Hemoglobin 11.2 g/dL (13.5-17.5); IMMATURE GRAN ABSOLUTE AUTO 0.03 K/mm3 (0.00-0.10); IMMATURE GRAN PERCENT AUTO 0 % (0-1); LYMPHOCYTES ABSOLUTE AUTO 1.88 K/mm3 (0.84-5.20); LYMPHOCYTES PERCENT AUTO 22 % (21-46); MONOCYTES ABSOLUTE AUTO 1.09 K/mm3 (0.16-1.47); MONOCYTES PERCENT AUTO 13 % (4-13); Mean Corpuscular HGB 27.1 pg (26.0-34.0); Mean Corpuscular HGB Conc 31.5 g/dL (31.5-36.5); Mean Corpuscular Volume 86 fL (80-100); Mean Platelet Volume 9.8 fL (9.1-12.4); NEUTROPHILS ABSOLUTE AUTO 5.22 K/mm3 (1.96-9.15); NEUTROPHILS PERCENT AUTO 62 % (41-73); Platelet Count 406 K/mm3 (150-400); RDW Standard Deviation 44.6 fL (35.1-46.3); Red Blood Cell Count 4.13 M/mm3 (4.30-5.90); White Blood Cell Count 8.41 K/mm3 (4.00-11.30)
[2021-11-20 05:26] LABS: Albumin, Blood 2.5 g/dL (3.4-5.0); Anion Gap 5 mmol/L (6-16); Blood Urea Nitrogen 13 mg/dL (8-24); Bun/Creatinine Ratio 26.2 (12.0-20.0); CO2, Blood 29 mmol/L (21-32); Calcium, Blood 8.6 mg/dL (8.5-10.1); Chloride, Blood 107 mmol/L (98-108); Glomerular Filtration Rate 145 (60-); Glucose, Blood 90 mg/dL (70-99); Phosphorus, Blood 3.3 mg/dL (2.5-4.9); Potassium, Blood 4.2 mmol/L (3.5-5.5); Sodium, Blood 141 mmol/L (136-145)
--- NOTE | 2021-11-20 15:17 | NUR ---
DOBHOFF ATTEMPT. DOBHOFF PLACEMENT ATTEMPTED. DOBHOFF WAS ADVANCED DOWN THE PTS ESOPHAGUS 60 CC THEN ADVANCED ANOTHER 30 CC FOR SLACK INSTRUCTED. UNFORTUANTLY THE STYLET WAS REMOVED THE TUBE CURLED UP AND THE PTS THROAT CAUSING HIM TO VOMIT/SARABJIT. THE TUBE WAS REMOVED AND A CALL TO DR. GOSS WAS MADE. ORDERER TO REATTEMPT FOR TOMORROW AM WAS GIVEN
--- NOTE | 2021-11-20 18:22 | NUR ---
SHIFT SUMMARY PT IS A&O X4 AND PLEASANT. PT'S CONTINUED TO HAVE SEVERE PAIN FOR MOST OF THE DAY. PT STATED THAT THE DILAUDED WAS NOT HELPING RELIEVE THE PAIN ANY MORE. PT WAS ABLE TO TALK WITH DR. ARANGO ABOUT DIFFERENT PAIN CONTROL MEASURES AND A FIRE APPARATUS ENGINEER PUMP WAS ORDERED. PT STATES THAT FIRE APPARATUS ENGINEER PUMP IS HELPING AND PT APPEARS TO BE MORE COMFORTABLE AND WAS MOVING AROUND WITH LESS GRIMACING. A DOBHOF WAS ALSO ATTEMPTED TO BE PLACED BUT WAS UNSUCCESSFUL. DR. ARANGO WAS NOTIFIED AND HE REQUESTED THAT IT COULD BE PLACED IN THE [facility], ON 11/21/21. PT'S SIGNIFICANT OTHER WAS IN THE ROOM WITH PT IN THE MORNING AND HIS MOM HAS BEEN WITH HIM DURING THE AFTERNOON. PT LIKES TO HAVE MEDICATION SCHEDULE WRITTEN ON WHITE BOARD. PT HAS CALL LIGHT IN REACH.
--- NOTE | 2021-11-21 05:21 | NUR ---
SHIFT SUMMARY PT INITIALLY REPORTING THAT HE WAS FEELING MUCH BETTER PAIN RELIEF FROM RESEARCH EXECUTIVE. SHORTLY INTO THE SHIFT PT STATED THAT HE WAS FEELING LIKE HE WAS GETTING TOO MUCH PAIN MEDICATION, HE WAS HAVING A LOT OF NAUSEA AND SAID THAT IT FELT LIKE HIS HEAD WAS SPINNING. PT REQUESTED TO HAVE RESEARCH EXECUTIVE TURNED OFF. SPOKE WITH DR. WILLOUGHBY WITH NEW ORDERS TO HALF THE DOSE ON THE RESEARCH EXECUTIVE. AFTER WAITING AN HOUR FOR PT TO FEEL BETTER PT WAS REHOOKED TO RESEARCH EXECUTIVE RUNNING AT 0.5 MG/HR CONTINUOUS. PT ALSO GIVEN A DOSE OF COMPAZINE. PT REPORTED FEELING MUCH BETTER. PT VERY LETHARGIC FOR FIRST PART OF SHIFT BUT IMPROVED AFTER DOSE CHANGE. PT REPORTED THAT HE DID NOT PRESS HIS BUTTON FOR ANY ADDITIONAL PAIN MEDICATION. PAIN CONTINUES TO BE IN L ABD. MOTHER AT BEDSIDE AT START OF SHIFT AND SIGNIFICANT OTHER AT BEDSIDE FOR REMAINDER. PT RESTING WELL AT THIS TIME. VITAL SIGNS STABLE. WILL CONTINUE TO MONITOR.
[2021-11-21 06:01] LABS: BASOPHILS ABSOLUTE AUTO 0.03 K/mm3 (0.00-0.23); BASOPHILS PERCENT AUTO 0 % (0-2); EOSINOPHILS ABSOLUTE AUTO 0.16 K/mm3 (0.00-0.68); EOSINOPHILS PERCENT AUTO 2 % (0-6); Hematocrit 33.1 % (37.0-53.0); Hemoglobin 10.5 g/dL (13.5-17.5); IMMATURE GRAN ABSOLUTE AUTO 0.03 K/mm3 (0.00-0.10); IMMATURE GRAN PERCENT AUTO 0 % (0-1); LYMPHOCYTES ABSOLUTE AUTO 1.91 K/mm3 (0.84-5.20); LYMPHOCYTES PERCENT AUTO 21 % (21-46); MONOCYTES ABSOLUTE AUTO 0.89 K/mm3 (0.16-1.47); MONOCYTES PERCENT AUTO 10 % (4-13); Mean Corpuscular HGB 27.2 pg (26.0-34.0); Mean Corpuscular HGB Conc 31.7 g/dL (31.5-36.5); Mean Corpuscular Volume 86 fL (80-100); Mean Platelet Volume 9.3 fL (9.1-12.4); NEUTROPHILS ABSOLUTE AUTO 6.09 K/mm3 (1.96-9.15); NEUTROPHILS PERCENT AUTO 67 % (41-73); Platelet Count 442 K/mm3 (150-400); RDW Coefficient Variation 13.8 % (11.7-14.2); RDW Standard Deviation 43.4 fL (35.1-46.3); Red Blood Cell Count 3.86 M/mm3 (4.30-5.90); White Blood Cell Count 9.11 K/mm3 (4.00-11.30)
[2021-11-21 06:48] LABS: Bun/Creatinine Ratio 25.3 (12.0-20.0); Calcium, Blood 8.2 mg/dL (8.5-10.1); Creatinine, Blood 0.51 mg/dL (0.60-1.20); Potassium, Blood 4.2 mmol/L (3.5-5.5)
--- NOTE | 2021-11-21 16:51 | NUR ---
SHIFT SUMMARY PT AxOx4. PLEASANT AND COOPERATIVE WITH CARE. PT ON CRAYON MOLDING MACHINE OPERATOR PUMP WITH IV DILAUDID. PT REPORTS PAIN IS MANAGED WELL THIS SHIFT. PT REPORTS NAUSEA x2. MEDICATED PER EMAR. PT ADVANCED DIET FROM NPO TO CLEAR LIQUIDS THIS SHIFT. PT GIVEN PANCREATIC ENZYMES 30 MIN PRIOR TO MEAL TIMES. PT REPORTS DRINKING HIS MEALS VERY SLOWLY SEEMS TO HELP HIM TOLERATE THEM. PT IS CURRENTLY AWAITING TRANSFER TO [facility]IG[facility] LEVEL OF CARE TO [facility] WHEN BED AVAILABLE FOR TREATMENT OF PANCREATIC PSEUDOCYSTS. PT CURRENTLY STANDING IN ROOM STRETCHING. VITALS REVIEWED. PT DENIES ANY FURTHER NEEDS AT THIS TIME.
--- NOTE | 2021-11-21 20:17 | NUR ---
[facility] CALLED.
--- NOTE | 2021-11-21 20:55 | NUR ---
TRANSER REPORT GIVEN TO RECEIVING NURSE CATHIE AT [facility]. TRANSFER PAPERWORK HAS BEEN COMPLETED AND SIGNED BY VERITO. ASSSEMENT AND HS MEDS GIVEN. [facility] TO MEAT CARRIER PT IN APPROXIMATELY 30 MINS.
--- NOTE | 2021-11-21 22:15 | NUR ---
TRANSFER [facility] HAS COME TO GET PT. PT DENIES PAIN AT THIS TIME, SURGICAL INSTRUMENT TECHNICIAN AND FLUIDS DISCONNTECTED. BELONGINGS IN PLACE WITH PT. PT STABLE, DENIES NEEDS AT THIS TIME.
== END 2021-11-21 22:19 | disposition short-term general hospital (02) | DRG 438 ==
LOC: ER 23:30 → MEDS 11-14 06:37
PROVIDERS: Family Medicine; Internal Medicine; Student in an Organized Health Care Education/Training Program; ADMIT Internal Medicine
DX: K86.3 Pseudocyst of pancreas (principal); E43 Unspecified severe protein-calorie malnutrition; Z68.1 Body mass index [BMI] 19.9 or less, adult; R64 Cachexia; K86.1 Other chronic pancreatitis; F41.0 Panic disorder [episodic paroxysmal anxiety]; D72.828 Other elevated white blood cell count; F17.210 Nicotine dependence, cigarettes, uncomplicated; K21.9 Gastro-esophageal reflux disease without esophagitis; F10.20 Alcohol dependence, uncomplicated; G89.29 Other chronic pain; D63.8 Anemia in other chronic diseases classified elsewhere; E83.39 Other disorders of phosphorus metabolism; R73.9 Hyperglycemia, unspecified; E88.09 Other disorders of plasma-protein metabolism, not elsewhere classified; Z79.4 Long term (current) use of insulin; Z79.899 Other long term (current) drug therapy
CPT/HCPCS: 36415; 74018; 74177; 80048; 80053; 80069; 83690; 85025; 94762; 96361; 96374; 96375; 96376; 99285-25; A9270; C9113; J0780; J1170; J1885; J2060; J2185; J2270; J2405; J2765; J3010; J7030; J7050; J7060; J7120; Q9967

== ENCOUNTER 2022-03-14 23:49 | Emergency (ER) | payer OTHER ==
[~2022-03-14] VITALS: Ht 170.2 cm; Wt 59.0 kg
[~2022-03-14 23:49] MED LIST changes: +NOVOLOG100 UNIT/2 INJ
[2022-03-15] MEDS ORDERED: AMOCLA875 PO (01:05)
== END 2022-03-15 01:45 | disposition home or self-care (01) ==
LOC: ER 23:49
DX: S61.452A Open bite of left hand, initial encounter (principal); W54.0XXA Bitten by dog, initial encounter; F17.290 Nicotine dependence, other tobacco product, uncomplicated; Z79.899 Other long term (current) drug therapy
CPT/HCPCS: A9270

== ENCOUNTER 2022-11-09 08:58 | Emergency (ER) | payer OTHER ==
[~2022-11-09] VITALS: Ht 170.2 cm; Wt 61.2 kg
[2022-11-09 09:12] VITALS: BP 157/95
== END 2022-11-09 09:25 | disposition home or self-care (01) ==
LOC: ER 08:58
DX: T63.441A Toxic effect of venom of bees, accidental (unintentional), initial encounter (principal); Z79.899 Other long term (current) drug therapy; Z79.4 Long term (current) use of insulin; F17.210 Nicotine dependence, cigarettes, uncomplicated
CPT/HCPCS: 99282; J1100

== ENCOUNTER 2023-09-29 11:49 | Emergency (ER) | payer OTHER ==
[~2023-09-29] VITALS: Ht 170.2 cm; Wt 59.0 kg
[2023-09-29 12:01] VITALS: BP 154/103
[2023-09-29 12:39] LABS: BASOPHILS ABSOLUTE AUTO 0.05 K/mm3 (0.00-0.23); BASOPHILS PERCENT AUTO 1 % (0-2); EOSINOPHILS ABSOLUTE AUTO 0.17 K/mm3 (0.00-0.68); EOSINOPHILS PERCENT AUTO 2 % (0-6); Hematocrit 44.5 % (37.0-53.0); Hemoglobin 14.6 g/dL (13.5-17.5); IMMATURE GRAN ABSOLUTE AUTO 0.03 K/mm3 (0.00-0.10); IMMATURE GRAN PERCENT AUTO 0 % (0-1); LYMPHOCYTES ABSOLUTE AUTO 1.79 K/mm3 (0.84-5.20); LYMPHOCYTES PERCENT AUTO 18 % (21-46); MONOCYTES ABSOLUTE AUTO 0.68 K/mm3 (0.16-1.47); MONOCYTES PERCENT AUTO 7 % (4-13); Mean Corpuscular HGB 29.6 pg (26.0-34.0); Mean Corpuscular HGB Conc 32.8 g/dL (31.5-36.5); Mean Corpuscular Volume 90 fL (80-100); Mean Platelet Volume 9.3 fL (9.1-12.4); NEUTROPHILS ABSOLUTE AUTO 7.08 K/mm3 (1.96-9.15); NEUTROPHILS PERCENT AUTO 72 % (41-73); Platelet Count 379 K/mm3 (150-400); RDW Coefficient Variation 12.6 % (11.7-14.2); RDW Standard Deviation 41.3 fL (35.1-46.3); Red Blood Cell Count 4.93 M/mm3 (4.30-5.90)
[2023-09-29 12:55] LABS: Albumin, Blood 4.2 g/dL (3.4-5.0); Albumin/Globulin Ratio 1.1 (0.8-1.8); Bilirubin, Total 0.4 mg/dL (0.1-1.0); Bun/Creatinine Ratio 29.3 (12.0-20.0); Creatinine, Blood 0.61 mg/dL (0.60-1.20); Globulin, Blood 3.9 g/dL (2.2-4.0); Total Protein, Blood 8.1 g/dL (6.4-8.2)
== END 2023-09-29 16:00 | disposition home or self-care (01) ==
LOC: ER 11:49
PROVIDERS: Physician Assistant
DX: K22.6 Gastro-esophageal laceration-hemorrhage syndrome (principal); F17.200 Nicotine dependence, unspecified, uncomplicated; Z79.4 Long term (current) use of insulin; Z79.899 Other long term (current) drug therapy
CPT/HCPCS: 80053; 83690; 85025; 99284

== ENCOUNTER → 2024-01-14 | Outpatient (CLI) | payer OTHER ==
[2024-01-14 17:43] LABS: BASOPHILS ABSOLUTE AUTO 0.07 K/mm3 (0.00-0.23); BASOPHILS PERCENT AUTO 1 % (0-2); EOSINOPHILS ABSOLUTE AUTO 0.21 K/mm3 (0.00-0.68); EOSINOPHILS PERCENT AUTO 2 % (0-6); Hematocrit 42.2 % (37.0-53.0); Hemoglobin 13.1 g/dL (13.5-17.5); IMMATURE GRAN ABSOLUTE AUTO 0.05 K/mm3 (0.00-0.10); IMMATURE GRAN PERCENT AUTO 0 % (0-1); LYMPHOCYTES ABSOLUTE AUTO 1.92 K/mm3 (0.84-5.20); LYMPHOCYTES PERCENT AUTO 15 % (21-46); MONOCYTES PERCENT AUTO 10 % (4-13); Mean Corpuscular HGB 22.9 pg (26.0-34.0); Mean Corpuscular Volume 74 fL (80-100); Mean Platelet Volume 9.9 fL (9.1-12.4); NEUTROPHILS ABSOLUTE AUTO 9.44 K/mm3 (1.96-9.15); NEUTROPHILS PERCENT AUTO 73 % (41-73); Platelet Count 383 K/mm3 (150-400); RDW Coefficient Variation 22.6 % (11.7-14.2); RDW Standard Deviation 57.8 fL (35.1-46.3); Red Blood Cell Count 5.71 M/mm3 (4.30-5.90); White Blood Cell Count 12.99 K/mm3 (4.00-11.30)
[2024-01-14 18:42] LABS: Albumin/Globulin Ratio 0.9 (0.8-1.8); Bilirubin, Total 0.9 mg/dL (0.1-1.0); Bun/Creatinine Ratio 11.9 (12.0-20.0); Calcium, Blood 9.8 mg/dL (8.5-10.1); Creatinine, Blood 0.67 mg/dL (0.60-1.20); Globulin, Blood 4.4 g/dL (2.2-4.0); Phosphorus, Blood 3.3 mg/dL (2.5-4.9); Potassium, Blood 3.9 mmol/L (3.5-5.5); Total Protein, Blood 8.4 g/dL (6.4-8.2)
== END ==
LOC: LAB 16:27 → LAB SHORT 16:27
PROVIDERS: Family Medicine
DX: R10.9 Unspecified abdominal pain (principal)
CPT/HCPCS: 80053; 83690; 84100; 85025; 87086

== ENCOUNTER 2024-03-24 10:54 | Observation (INO) | payer OTHER ==
[~2024-03-24] VITALS: Ht 170.2 cm; Wt 60.1 kg
[2024-03-24 11:29] LABS: BASOPHILS ABSOLUTE AUTO 0.07 K/mm3 (0.00-0.23); BASOPHILS PERCENT AUTO 1 % (0-2); EOSINOPHILS ABSOLUTE AUTO 0.23 K/mm3 (0.00-0.68); EOSINOPHILS PERCENT AUTO 2 % (0-6); Hematocrit 44.7 % (37.0-53.0); Hemoglobin 14.5 g/dL (13.5-17.5); IMMATURE GRAN ABSOLUTE AUTO 0.05 K/mm3 (0.00-0.10); IMMATURE GRAN PERCENT AUTO 0 % (0-1); LYMPHOCYTES ABSOLUTE AUTO 1.97 K/mm3 (0.84-5.20); LYMPHOCYTES PERCENT AUTO 16 % (21-46); MONOCYTES ABSOLUTE AUTO 0.75 K/mm3 (0.16-1.47); MONOCYTES PERCENT AUTO 6 % (4-13); Mean Corpuscular HGB 27.4 pg (26.0-34.0); Mean Corpuscular HGB Conc 32.4 g/dL (31.5-36.5); Mean Corpuscular Volume 85 fL (80-100); Mean Platelet Volume 9.4 fL (9.1-12.4); NEUTROPHILS ABSOLUTE AUTO 9.58 K/mm3 (1.96-9.15); NEUTROPHILS PERCENT AUTO 76 % (41-73); Platelet Count 337 K/mm3 (150-400); RDW Coefficient Variation 16.4 % (11.7-14.2); RDW Standard Deviation 51.2 fL (35.1-46.3); Red Blood Cell Count 5.29 M/mm3 (4.30-5.90); White Blood Cell Count 12.65 K/mm3 (4.00-11.30)
[2024-03-24 11:39] LABS: Source, Urine Clean Catch
[2024-03-24 11:50] LABS: Albumin, Blood 4.4 g/dL (3.4-5.0); Albumin/Globulin Ratio 1.2 (0.8-1.8); Bilirubin, Total 0.3 mg/dL (0.1-1.0); Bun/Creatinine Ratio 21.4 (12.0-20.0); Calcium, Blood 9.4 mg/dL (8.5-10.1); Creatinine, Blood 0.61 mg/dL (0.60-1.20); Globulin, Blood 3.6 g/dL (2.2-4.0); Potassium, Blood 4.1 mmol/L (3.5-5.5)
[2024-03-24 11:57] LABS: Appearance, Urine Clear (Clear); Bilirubin, Urine Neg (Neg); Blood, Urine Neg (Neg); Color, Urine Yellow (P-Yellow); Glucose Qualitative, Urine Neg (Neg); Ketones, Urine 3+ (Neg); Leukocyte Esterase, Urine 1+ (Neg); Nitrite, Urine Neg (Neg); Protein, Urine Neg (Neg); Specific Gravity, Urine 1.015 (1.003-1.022); Urobilinogen, Urine NORM (Normal); pH, Urine 6.5 (5.0-8.0)
[2024-03-24 12:16] LABS: Bacteria Rare /hpf; Mucus Heavy (0-Heavy); Red Blood Cells, Urine 0-2 /hpf (0-2); Squamous Epithelial Cells Rare /hpf (Few); White Blood Cells, Urine 0-2 /hpf (0-5)
[2024-03-24] MEDS ORDERED: HYDROmorphone HCl/Pf 1MG SYR IV ONE (17:15)
[2024-03-24] MEDS ORDERED: Morphine Sulfate 4 MG/1 ML Injection IV ONE (18:15)
[2024-03-24] MEDS ORDERED: HYDROcodone 10-APAP 325 TAB PO PRN (19:45)
[2024-03-24] MEDS ORDERED: Morphine Sulfate 4 MG/1 ML Injection IV PRN (19:45)
[2024-03-24] MEDS ORDERED: Magnesium Hydroxide Conc 10 ML UDC PO PRN (19:50)
[2024-03-24] MEDS ORDERED: FLU VACC TS2024-25(6MOS UP)/PF 45 MCG/0.5 ML SYRINGE IM SCH (19:50)
[2024-03-24 20:52] LABS: BASOPHILS ABSOLUTE AUTO 0.06 K/mm3 (0.00-0.23); BASOPHILS PERCENT AUTO 1 % (0-2); EOSINOPHILS ABSOLUTE AUTO 0.16 K/mm3 (0.00-0.68); EOSINOPHILS PERCENT AUTO 1 % (0-6); Hematocrit 44.1 % (37.0-53.0); Hemoglobin 14.3 g/dL (13.5-17.5); IMMATURE GRAN ABSOLUTE AUTO 0.04 K/mm3 (0.00-0.10); IMMATURE GRAN PERCENT AUTO 0 % (0-1); LYMPHOCYTES ABSOLUTE AUTO 1.81 K/mm3 (0.84-5.20); LYMPHOCYTES PERCENT AUTO 14 % (21-46); MONOCYTES ABSOLUTE AUTO 0.78 K/mm3 (0.16-1.47); MONOCYTES PERCENT AUTO 6 % (4-13); Mean Corpuscular HGB 27.4 pg (26.0-34.0); Mean Corpuscular HGB Conc 32.4 g/dL (31.5-36.5); Mean Corpuscular Volume 85 fL (80-100); Mean Platelet Volume 10.1 fL (9.1-12.4); NEUTROPHILS ABSOLUTE AUTO 10.16 K/mm3 (1.96-9.15); NEUTROPHILS PERCENT AUTO 78 % (41-73); Platelet Count 341 K/mm3 (150-400); RDW Coefficient Variation 16.1 % (11.7-14.2); RDW Standard Deviation 50.3 fL (35.1-46.3); Red Blood Cell Count 5.21 M/mm3 (4.30-5.90); White Blood Cell Count 13.01 K/mm3 (4.00-11.30)
[2024-03-24] MEDS ORDERED: Docusate Sodium 100 MG Cap PO SCH (21:00)
[2024-03-24 21:50] VITALS: BP 132/94
--- NOTE | 2024-03-24 22:44 | NUR ---
PATIENT IS A NEW ADMIT FROM THE ED. AXOX 4 AND ARRIVED VIA W/C SELF TRANSFER AND INDEPENDENT IN ROOM. DENIES CHEST PAIN, SOB, AND N/V. REPORTS LEFT FLANK PAIN THAT RADIATES TO SHOULDER. IV PAIN MEDS GIVEN IN ED. ON ROOM AIR. ORIENTED TO ROOM AND CALL LIGHT SYSTEM. REPORTS WILL WATCH TV AFTER ASSESSMENT. PLACED HIS PERSONAL CELL PHONE ON ASSISTANT PLANT CONTROLLER IN ROOM. CALL LIGHT IN REACH. WCTM.
[2024-03-24] MEDS ORDERED: Nicotine 21 MG PATCH TOP SCH (23:00)
[2024-03-25 02:35] LABS: BASOPHILS ABSOLUTE AUTO 0.08 K/mm3 (0.00-0.23); BASOPHILS PERCENT AUTO 1 % (0-2); EOSINOPHILS ABSOLUTE AUTO 0.32 K/mm3 (0.00-0.68); EOSINOPHILS PERCENT AUTO 3 % (0-6); Hematocrit 41.3 % (37.0-53.0); Hemoglobin 13.6 g/dL (13.5-17.5); IMMATURE GRAN ABSOLUTE AUTO 0.04 K/mm3 (0.00-0.10); IMMATURE GRAN PERCENT AUTO 0 % (0-1); LYMPHOCYTES ABSOLUTE AUTO 2.67 K/mm3 (0.84-5.20); LYMPHOCYTES PERCENT AUTO 25 % (21-46); MONOCYTES ABSOLUTE AUTO 1.14 K/mm3 (0.16-1.47); MONOCYTES PERCENT AUTO 11 % (4-13); Mean Corpuscular HGB 27.9 pg (26.0-34.0); Mean Corpuscular HGB Conc 32.9 g/dL (31.5-36.5); Mean Corpuscular Volume 85 fL (80-100); Mean Platelet Volume 9.5 fL (9.1-12.4); NEUTROPHILS ABSOLUTE AUTO 6.36 K/mm3 (1.96-9.15); NEUTROPHILS PERCENT AUTO 60 % (41-73); Platelet Count 310 K/mm3 (150-400); RDW Coefficient Variation 16.3 % (11.7-14.2); RDW Standard Deviation 50.9 fL (35.1-46.3); Red Blood Cell Count 4.88 M/mm3 (4.30-5.90); White Blood Cell Count 10.61 K/mm3 (4.00-11.30)
[2024-03-25 03:33] LABS: Albumin, Blood 3.3 g/dL (3.4-5.0); Albumin/Globulin Ratio 1.1 (0.8-1.8); Bilirubin, Total 0.2 mg/dL (0.1-1.0); Bun/Creatinine Ratio 25.3 (12.0-20.0); Creatinine, Blood 0.67 mg/dL (0.60-1.20); Globulin, Blood 3.1 g/dL (2.2-4.0); Potassium, Blood 3.8 mmol/L (3.5-5.5); Total Protein, Blood 6.4 g/dL (6.4-8.2)
--- NOTE | 2024-03-25 04:37 | NUR ---
SHIFT SUMMARY PATIENT HAD NO ACUTE CHANGES. AXO X4 AND INDEPENDENT IN ROOM. REPORTED LEFT FLANK PAIN RADIATING TO SHOULDER X TWO. IV MORPHINE 4 MG GIVEN AND ALTERNATED WITH NORCO. REPORTED PAIN IS DECREASING. DENIES CHEST PAIN, SOB, AND N/V. PIV INTACT. VSS/AFEBRILE. WATCHED TV FIRST PART OF SHIFT. COOPERATIVE WITH CARE. CALL LIGHT IN REACH. BED IN LOWEST POSITION. WILL CONTINUE TO MONITOR UNTIL DAY SHIFT NURSE ASSUMES CARE.
[2024-03-25 05:48] VITALS: BP 112/75
[2024-03-25 07:29] VITALS: BP 120/73
[2024-03-25] MEDS ORDERED: Nicotine 21 MG PATCH TOP SCH (09:00)
[2024-03-25] MEDS ORDERED: Folic Acid 1 MG TAB PO SCH (09:00)
[2024-03-25] MEDS ORDERED: Multivitamins/Minerals TAB PO SCH (09:00)
[2024-03-25] MEDS ORDERED: Thiamine HCl 100 MG Tab PO SCH (09:00)
[2024-03-25 09:37] LABS: BASOPHILS ABSOLUTE AUTO 0.06 K/mm3 (0.00-0.23); BASOPHILS PERCENT AUTO 1 % (0-2); EOSINOPHILS PERCENT AUTO 3 % (0-6); Hematocrit 44.8 % (37.0-53.0); Hemoglobin 14.4 g/dL (13.5-17.5); IMMATURE GRAN ABSOLUTE AUTO 0.02 K/mm3 (0.00-0.10); IMMATURE GRAN PERCENT AUTO 0 % (0-1); LYMPHOCYTES ABSOLUTE AUTO 2.28 K/mm3 (0.84-5.20); LYMPHOCYTES PERCENT AUTO 26 % (21-46); MONOCYTES ABSOLUTE AUTO 0.88 K/mm3 (0.16-1.47); MONOCYTES PERCENT AUTO 10 % (4-13); Mean Corpuscular HGB 27.4 pg (26.0-34.0); Mean Corpuscular HGB Conc 32.1 g/dL (31.5-36.5); Mean Corpuscular Volume 85 fL (80-100); Mean Platelet Volume 10.1 fL (9.1-12.4); NEUTROPHILS ABSOLUTE AUTO 5.23 K/mm3 (1.96-9.15); NEUTROPHILS PERCENT AUTO 60 % (41-73); Platelet Count 338 K/mm3 (150-400); RDW Coefficient Variation 16.3 % (11.7-14.2); RDW Standard Deviation 51.4 fL (35.1-46.3); Red Blood Cell Count 5.26 M/mm3 (4.30-5.90); White Blood Cell Count 8.77 K/mm3 (4.00-11.30)
[2024-03-25] MEDS ORDERED: HYDACE10B PO (14:49)
--- NOTE | 2024-03-25 15:51 | NUR ---
PT DOING WELL STATES HE FEELS GREAT, PT HERE FOR PAIN CONTROL AND WILL CALL IF NEEDING MEDICATION. PT INDEPENDANT IN RM AND ABLE TO MAKE NEEDS KNOWN.
--- NOTE | 2024-03-25 15:53 | NUR ---
1200 PT PAIN FREE SINCE THIS AM PT GIVEN DISCHARGE ORDERS AFTER LUNCH IF FEELING WELL HE CAN GO. 1530 DISCHARGE INSTRUCTIONS GIVEN PT WALKED OUT OF HOSPITAL, WAITING OUTSIDE
--- NOTE | 2024-03-25 15:53 | NUR ---
AFTER BREAKFAST PT C/O PAIN TO ABD AND CHEST, PT STATES PAIN IS MIGRATING. COVERED PER JUN.
== END 2024-03-25 15:47 | disposition home or self-care (01) ==
LOC: ER 10:54 → MEDS 10:55 → ENPENDDIS 03-25 14:37 → MEDS 03-25 15:47
PROVIDERS: Physician Assistant; ADMIT Internal Medicine
DX: R10.12 Left upper quadrant pain (principal); D73.5 Infarction of spleen; F17.200 Nicotine dependence, unspecified, uncomplicated; D72.829 Elevated white blood cell count, unspecified; Z79.899 Other long term (current) drug therapy
CPT/HCPCS: 36415; 74175; 80053; 81001; 83690; 85025; 87086; 96374-59; 96375-59; 96376; 99285-25; A9270; G0378; J1171; J2270; Q9967

== ENCOUNTER 2024-10-18 20:46 | Emergency (ER) | payer OTHER ==
[~2024-10-18] VITALS: Ht 170.2 cm; Wt 59.0 kg
[~2024-10-18 20:46] MED LIST changes: +HYDACE10B PO
[2024-10-18 21:35] LABS: BASOPHILS ABSOLUTE AUTO 0.05 K/mm3 (0.00-0.23); BASOPHILS PERCENT AUTO 0 % (0-2); EOSINOPHILS ABSOLUTE AUTO 0.19 K/mm3 (0.00-0.68); EOSINOPHILS PERCENT AUTO 1 % (0-6); Hematocrit 49.3 % (37.0-53.0); Hemoglobin 16.6 g/dL (13.5-17.5); IMMATURE GRAN ABSOLUTE AUTO 0.04 K/mm3 (0.00-0.10); IMMATURE GRAN PERCENT AUTO 0 % (0-1); LYMPHOCYTES ABSOLUTE AUTO 1.78 K/mm3 (0.84-5.20); LYMPHOCYTES PERCENT AUTO 13 % (21-46); MONOCYTES ABSOLUTE AUTO 1.06 K/mm3 (0.16-1.47); MONOCYTES PERCENT AUTO 8 % (4-13); Mean Corpuscular HGB Conc 33.7 g/dL (31.5-36.5); Mean Corpuscular Volume 86 fL (80-100); NEUTROPHILS ABSOLUTE AUTO 10.75 K/mm3 (1.96-9.15); NEUTROPHILS PERCENT AUTO 78 % (41-73); NRBC ABSOLUTE 0.00 K/mm3 (0.00-0.02); NRBC Auto 0.0 /100 WBC (0.0-0.2); Platelet Count 282 K/mm3 (150-400); RDW Coefficient Variation 13.7 % (11.7-14.2); RDW Standard Deviation 42.9 fL (35.1-46.3)
[2024-10-18 21:57] LABS: Alanine Aminotransfer (ALT/SGP 40.0 U/L (12-78); Albumin, Blood 4.4 g/dL (3.4-5.0); Albumin/Globulin Ratio 1.2 (0.8-1.8); Anion Gap 10.0 mmol/L (3-11); Aspartate Aminotrans (AST/SGOT 25.0 U/L (12-37); Bilirubin, Total 0.6 mg/dL (0.1-1.0); Blood Urea Nitrogen 14.0 mg/dL (8-24); CO2, Blood 24.0 mmol/L (21-32); Calcium, Blood 9.2 mg/dL (8.5-10.1); Chloride, Blood 105.0 mmol/L (98-108); Creatinine, Blood 0.77 mg/dL (0.60-1.20); Globulin, Blood 3.7 g/dL (2.2-4.0); Glucose, Blood 101.0 mg/dL (70-99); Potassium, Blood 4.0 mmol/L (3.5-5.5); Sodium, Blood 135.0 mmol/L (136-145); Total Protein, Blood 8.1 g/dL (6.4-8.2)
[2024-10-18] MEDS ORDERED: NS 1,000 ML IV SCH (22:10)
[2024-10-18] MEDS ORDERED: Ketorolac Tromethamine 30mg Vial IV ONE (22:10)
[2024-10-18 22:26] LABS: Cholesterol 196 mg/dL (50-200); Ethanol (Alcohol), Blood, Med <3 mg/dL; Triglycerides 117 mg/dL (30-140)
[2024-10-18] MEDS ORDERED: Morphine Sulfate 4 MG/1 ML Injection IV ONE (23:35)
[2024-10-18] MEDS ORDERED: Percocet 5-3251 EACH PO (23:36)
[2024-10-19] MEDS ORDERED: RX Prepack 6 Tabs Oxycodone 5mg UD ONE (00:15)
[2024-10-19 00:31] VITALS: BP 127/88
== END 2024-10-19 00:31 | disposition home or self-care (01) ==
LOC: ER 20:46
PROVIDERS: Emergency Medicine; Student in an Organized Health Care Education/Training Program
DX: K85.90 Acute pancreatitis without necrosis or infection, unspecified (principal); F17.290 Nicotine dependence, other tobacco product, uncomplicated; Z79.899 Other long term (current) drug therapy
CPT/HCPCS: 74177; 80053; 80320; 82465; 83690; 84478; 85025; A9270; J1885; J2270; J7030; Q9967

== ENCOUNTER 2024-10-19 09:38 | Inpatient (IN) | payer OTHER ==
[~2024-10-19] VITALS: Ht 170.2 cm; Wt 59.3 kg
[~2024-10-19 09:38] MED LIST changes: +Percocet 5-3251 EACH PO
[2024-10-19] MEDS ORDERED: HYDROmorphone HCl/Pf 1MG SYR IV ONE (10:25)
[2024-10-19] MEDS ORDERED: NS 1,000 ML IV SCH (10:25)
[2024-10-19 10:33] LABS: BASOPHILS ABSOLUTE AUTO 0.03 K/mm3 (0.00-0.23); BASOPHILS PERCENT AUTO 0 % (0-2); EOSINOPHILS ABSOLUTE AUTO 0.32 K/mm3 (0.00-0.68); EOSINOPHILS PERCENT AUTO 2 % (0-6); Hematocrit 46.6 % (37.0-53.0); Hemoglobin 15.4 g/dL (13.5-17.5); IMMATURE GRAN ABSOLUTE AUTO 0.04 K/mm3 (0.00-0.10); IMMATURE GRAN PERCENT AUTO 0 % (0-1); LYMPHOCYTES ABSOLUTE AUTO 1.23 K/mm3 (0.84-5.20); LYMPHOCYTES PERCENT AUTO 9 % (21-46); MONOCYTES ABSOLUTE AUTO 0.96 K/mm3 (0.16-1.47); MONOCYTES PERCENT AUTO 7 % (4-13); Mean Corpuscular HGB Conc 33.0 g/dL (31.5-36.5); Mean Corpuscular Volume 88 fL (80-100); NEUTROPHILS ABSOLUTE AUTO 11.77 K/mm3 (1.96-9.15); NEUTROPHILS PERCENT AUTO 82 % (41-73); NRBC ABSOLUTE 0.00 K/mm3 (0.00-0.02); NRBC Auto 0.0 /100 WBC (0.0-0.2); Platelet Count 272 K/mm3 (150-400); RDW Coefficient Variation 13.6 % (11.7-14.2); RDW Standard Deviation 44.1 fL (35.1-46.3)
[2024-10-19 10:57] LABS: Alanine Aminotransfer (ALT/SGP 35.0 U/L (12-78); Albumin, Blood 3.9 g/dL (3.4-5.0); Albumin/Globulin Ratio 1.2 (0.8-1.8); Anion Gap 12.0 mmol/L (3-11); Aspartate Aminotrans (AST/SGOT 26.0 U/L (12-37); Bilirubin, Total 0.8 mg/dL (0.1-1.0); Blood Urea Nitrogen 13.0 mg/dL (8-24); CO2, Blood 18.0 mmol/L (21-32); Calcium, Blood 8.8 mg/dL (8.5-10.1); Chloride, Blood 107.0 mmol/L (98-108); Creatinine, Blood 0.73 mg/dL (0.60-1.20); Globulin, Blood 3.3 g/dL (2.2-4.0); Glucose, Blood 92.0 mg/dL (70-99); Potassium, Blood 4.0 mmol/L (3.5-5.5); Sodium, Blood 133.0 mmol/L (136-145); Total Protein, Blood 7.2 g/dL (6.4-8.2)
[2024-10-19] MEDS ORDERED: Ondansetron HCl 2 MG / ML 2ML Vial IV ONE (11:10)
[2024-10-19] MEDS ORDERED: Ondansetron HCl 2 MG / ML 2ML Vial ONE (11:11)
[2024-10-19] MEDS ORDERED: Morphine Sulfate 4 MG/1 ML Injection IV PRN (11:35)
[2024-10-19] MEDS ORDERED: Ondansetron HCl 2 MG / ML 2ML Vial IV PRN (11:35)
[2024-10-19 13:24] VITALS: BP 132/90
[2024-10-19] MEDS ORDERED: HYDROmorphone HCl/Pf 1MG SYR IV PRN (13:35)
[2024-10-19 15:06] VITALS: BP 139/90
[2024-10-19] MEDS ORDERED: Lidocaine 4% 1 Patch TOP SCH (18:00)
--- NOTE | 2024-10-19 18:07 | NUR ---
ADMISSION NOTE/SHIFT SUMMARY PATIENT ADMITTED TO ROOM 325 FROM EMERGENCY ROOM THIS AFTERNOON AT 1313 VIA WHEELCAHIR. PATIENT INDEPENDENT IN ROOM, A/OX4, PLEASANT ADN COOPERATIVE WITH CARE. HAVING SEVERE ABDOMINAL PAIN UPON ARRIVAL PRIMARILY LUQ AND RADIATING TO PATIENT'S BACK. DR. SLATER CALLED AND PAIN MEDICATION REGIMEN ADJUSTED. PATIENT TOLERATING ICE CHIPS, ORDER TO ADVANCE DIET TOLERATED. DILAUDID EFFECTIVE IN MANAGING PATIENT'S PAIN. LACTED RINGERS RUNNING PER JUN. AIR HAMMER STRIPPER CALLED THIS EVENING PATIENT REQUESTING LIDOCAIN PATCH FOR HIS BACK. NO OTHER CONCERNS AT THIS TIME, WILL CONTINUE TO MONITOR.
[2024-10-19 19:18] VITALS: BP 144/91
[2024-10-20 02:58] VITALS: BP 142/96
[2024-10-20 05:45] LABS: BASOPHILS ABSOLUTE AUTO 0.04 K/mm3 (0.00-0.23); BASOPHILS PERCENT AUTO 0 % (0-2); EOSINOPHILS ABSOLUTE AUTO 0.34 K/mm3 (0.00-0.68); EOSINOPHILS PERCENT AUTO 3 % (0-6); Hematocrit 41.0 % (37.0-53.0); Hemoglobin 13.7 g/dL (13.5-17.5); IMMATURE GRAN ABSOLUTE AUTO 0.02 K/mm3 (0.00-0.10); IMMATURE GRAN PERCENT AUTO 0 % (0-1); LYMPHOCYTES ABSOLUTE AUTO 1.29 K/mm3 (0.84-5.20); LYMPHOCYTES PERCENT AUTO 12 % (21-46); MONOCYTES ABSOLUTE AUTO 0.96 K/mm3 (0.16-1.47); MONOCYTES PERCENT AUTO 9 % (4-13); Mean Corpuscular HGB Conc 33.4 g/dL (31.5-36.5); Mean Corpuscular Volume 88 fL (80-100); NEUTROPHILS ABSOLUTE AUTO 7.92 K/mm3 (1.96-9.15); NEUTROPHILS PERCENT AUTO 75 % (41-73); NRBC ABSOLUTE 0.00 K/mm3 (0.00-0.02); NRBC Auto 0.0 /100 WBC (0.0-0.2); Platelet Count 216 K/mm3 (150-400); RDW Coefficient Variation 13.5 % (11.7-14.2); RDW Standard Deviation 43.7 fL (35.1-46.3)
[2024-10-20 06:02] LABS: Alanine Aminotransfer (ALT/SGP 24.0 U/L (12-78); Albumin, Blood 3.4 g/dL (3.4-5.0); Albumin/Globulin Ratio 1.1 (0.8-1.8); Anion Gap 11.0 mmol/L (3-11); Aspartate Aminotrans (AST/SGOT 17.0 U/L (12-37); Bilirubin, Total 0.5 mg/dL (0.1-1.0); Blood Urea Nitrogen 7.0 mg/dL (8-24); CO2, Blood 23.0 mmol/L (21-32); Calcium, Blood 8.1 mg/dL (8.5-10.1); Chloride, Blood 105.0 mmol/L (98-108); Creatinine, Blood 0.67 mg/dL (0.60-1.20); Globulin, Blood 3.2 g/dL (2.2-4.0); Glucose, Blood 103.0 mg/dL (70-99); Potassium, Blood 3.9 mmol/L (3.5-5.5); Sodium, Blood 135.0 mmol/L (136-145); Total Protein, Blood 6.6 g/dL (6.4-8.2)
[2024-10-20] MEDS ORDERED: HYDROmorphone HCl/Pf 1MG SYR IV PRN ×2 (07:25→12:50)
[2024-10-20 07:31] VITALS: BP 139/98
[2024-10-20] MEDS ORDERED: Enoxaparin 40 MG/0.4 ML SYR SC SCH (09:00)
[2024-10-20 14:37] VITALS: BP 125/86
--- NOTE | 2024-10-20 18:01 | NUR ---
SHIFT SUMMARY: PT A&O X4. PLEASANT AND COOPERATIVE. INDEPENDENT IN ROOM. PAIN MEDICATION REGIMEN CHANGED. PT HAVING 6-8/10 ABDOMINAL PAIN. SECOND BAG FLUIDS INFUSED. CONTINUOUS FLUIDS ADDED TO EMAR @125/HR. PT STATED HE TOLERATED FULL CLEAR LIQUID DIET OKAY. UPGRADED TO FULL LIQUID FOR DINNER. CALL LIGHT IN REACH. PT IN CHAIR FOR DINNER.
--- NOTE | 2024-10-20 18:26 | NUR ---
NOTE: THIS RN WENT TO OPEN SECOND 5MG OXY TAB, TAB FLEW OUT OF PACKAGE AND ACCIDENTALLY STEPPED ON TAB. PHARMACY STATED TO PLACE ONE TIME 5MG ORDER TO REPLACE DOSAGE. PIECES OF TAB PLACED IN SHARPS CONTAINER.
[2024-10-20 19:11] VITALS: BP 128/91
[2024-10-21 03:04] VITALS: BP 122/93
[2024-10-21 06:08] LABS: Anion Gap 6.0 mmol/L (3-11); Blood Urea Nitrogen 4.0 mg/dL (8-24); CO2, Blood 29.0 mmol/L (21-32); Calcium, Blood 8.9 mg/dL (8.5-10.1); Chloride, Blood 106.0 mmol/L (98-108); Creatinine, Blood 0.58 mg/dL (0.60-1.20); Glucose, Blood 101.0 mg/dL (70-99); Potassium, Blood 3.7 mmol/L (3.5-5.5); Sodium, Blood 137.0 mmol/L (136-145)
[2024-10-21 07:07] VITALS: BP 123/87
[2024-10-21] MEDS ORDERED: Polyethylene Glycol 3350 17 gm PO SCH (11:00)
[2024-10-21 15:02] VITALS: BP 107/82
[2024-10-21] MEDS ORDERED: MIRALAX17 GM PO (15:15)
[2024-10-21] MEDS ORDERED: Percocet 10-321 EACH PO (15:16)
--- NOTE | 2024-10-21 17:43 | NUR ---
REVIEWED DISCHARGE WITH PT. PT VERBALIZED UNDERSTANDING MEDS AND INST. IV TO BE PULLED BY AIDE. NO TELE. PEND RIDE FROM SPOUSE.
== END 2024-10-21 16:17 | disposition home or self-care (01) | DRG 439 ==
LOC: ER 09:38 → MEDS 09:39
PROVIDERS: Student in an Organized Health Care Education/Training Program; ADMIT Student in an Organized Health Care Education/Training Program
DX: K85.90 Acute pancreatitis without necrosis or infection, unspecified (principal); E87.1 Hypo-osmolality and hyponatremia; K86.3 Pseudocyst of pancreas; I87.1 Compression of vein; F10.10 Alcohol abuse, uncomplicated; D72.829 Elevated white blood cell count, unspecified; F41.0 Panic disorder [episodic paroxysmal anxiety]; F41.9 Anxiety disorder, unspecified; F17.290 Nicotine dependence, other tobacco product, uncomplicated; Z79.899 Other long term (current) drug therapy; Z90.49 Acquired absence of other specified parts of digestive tract; Z79.891 Long term (current) use of opiate analgesic; F17.210 Nicotine dependence, cigarettes, uncomplicated
CPT/HCPCS: 36415; 74177; 80048; 80053; 80320; 82465; 83690; 84478; 85025; 94762; 96361; 96374; 96374-59; 96375; 96376; 99284-25; A9270; G0378; J1171; J1885; J2270; J2405; J7030; J7120; Q9967

== ENCOUNTER 2025-03-19 18:24 | Emergency (ER) | payer OTHER ==
[~2025-03-19] VITALS: Ht 170.2 cm; Wt 59.0 kg
[~2025-03-19 18:24] MED LIST changes: +Percocet 10-321 EACH PO
[2025-03-19 19:21] LABS: BASOPHILS ABSOLUTE AUTO 0.05 K/mm3 (0.00-0.23); BASOPHILS PERCENT AUTO 0 % (0-2); EOSINOPHILS ABSOLUTE AUTO 0.07 K/mm3 (0.00-0.68); EOSINOPHILS PERCENT AUTO 0 % (0-6); Hematocrit 46.4 % (37.0-53.0); Hemoglobin 15.3 g/dL (13.5-17.5); IMMATURE GRAN ABSOLUTE AUTO 0.06 K/mm3 (0.00-0.10); IMMATURE GRAN PERCENT AUTO 0 % (0-1); LYMPHOCYTES ABSOLUTE AUTO 1.37 K/mm3 (0.84-5.20); LYMPHOCYTES PERCENT AUTO 8 % (21-46); MONOCYTES ABSOLUTE AUTO 1.47 K/mm3 (0.16-1.47); MONOCYTES PERCENT AUTO 9 % (4-13); Mean Corpuscular HGB Conc 33.0 g/dL (31.5-36.5); Mean Corpuscular Volume 88 fL (80-100); NEUTROPHILS ABSOLUTE AUTO 13.22 K/mm3 (1.96-9.15); NEUTROPHILS PERCENT AUTO 81 % (41-73); NRBC ABSOLUTE 0.00 K/mm3 (0.00-0.02); NRBC Auto 0.0 /100 WBC (0.0-0.2); Platelet Count 285 K/mm3 (150-400); RDW Coefficient Variation 13.0 % (11.7-14.2); RDW Standard Deviation 42.1 fL (35.1-46.3)
[2025-03-19 19:46] LABS: Alanine Aminotransfer (ALT/SGP 20.0 U/L (12-78); Albumin, Blood 4.2 g/dL (3.4-5.0); Albumin/Globulin Ratio 1.2 (0.8-1.8); Anion Gap 15.0 mmol/L (3-11); Aspartate Aminotrans (AST/SGOT 15.0 U/L (12-37); Bilirubin, Total 0.8 mg/dL (0.1-1.0); Blood Urea Nitrogen 11.0 mg/dL (8-24); CO2, Blood 18.0 mmol/L (21-32); Calcium, Blood 9.1 mg/dL (8.5-10.1); Chloride, Blood 104.0 mmol/L (98-108); Creatinine, Blood 0.62 mg/dL (0.60-1.20); Globulin, Blood 3.5 g/dL (2.2-4.0); Glucose, Blood 79.0 mg/dL (70-99); Potassium, Blood 4.0 mmol/L (3.5-5.5); Sodium, Blood 133.0 mmol/L (136-145); Total Protein, Blood 7.7 g/dL (6.4-8.2)
[2025-03-19 20:19] LABS: Source, Urine Clean Catch
[2025-03-19 20:24] LABS: Bilirubin, Urine Neg (Neg); Glucose Qualitative, Urine Neg (Neg); Ketones, Urine 4+ (Neg); Leukocyte Esterase, Urine Neg (Neg); Protein, Urine 2+ (Neg); Specific Gravity, Urine 1.020 (1.003-1.022); Urobilinogen, Urine NORM (Normal)
[2025-03-19 20:29] LABS: Color, Urine Yellow (P-Yellow)
[2025-03-19 20:30] LABS: Red Blood Cells, Urine 0-2 /hpf (0-2); White Blood Cells, Urine Not Seen /hpf (0-5)
[2025-03-19] MEDS ORDERED: Prochlorperazine Edisylate 10 mg Vial IV ONE (22:15)
[2025-03-19] MEDS ORDERED: DiphenhydrAMINE HCl 50 MG/ML 1ML Vial IV ONE (22:15)
[2025-03-19] MEDS ORDERED: FentaNYL Citrate 50 MCG/ML 2 ML Injection IV PRN (22:15)
[2025-03-19] MEDS ORDERED: NS 1,000 ML IV SCH (22:15)
[2025-03-20] MEDS ORDERED: RX Prepack 2 Tabs Ondansetron ODT 4MG UD ONE (01:35)
[2025-03-20 02:30] VITALS: BP 129/74
== END 2025-03-20 02:36 | disposition home or self-care (01) ==
LOC: ER 18:24
PROVIDERS: Student in an Organized Health Care Education/Training Program
DX: K29.70 Gastritis, unspecified, without bleeding (principal); E86.0 Dehydration; R00.0 Tachycardia, unspecified; R82.4 Acetonuria; F17.290 Nicotine dependence, other tobacco product, uncomplicated; Z90.49 Acquired absence of other specified parts of digestive tract; Z79.899 Other long term (current) drug therapy; Z59.89 Other problems related to housing and economic circumstances
CPT/HCPCS: 71046; 74177; 80053; 81001; 83690; 84484; 85025; 96361; 96374-59; 96375; 96376; 99284-25; A9270; J0780; J1200; J3010; J7030; Q9967